=== PATIENT | male | born 1950 | race Hispanic/Latino ===

== ENCOUNTER 2020-04-01 12:15 | Inpatient (IN) | payer OTHER ==
[~2020-04-01] VITALS: Ht 167.6 cm; Wt 91.6 kg
[2020-04-01 13:17] LABS: INR 0.99 (0.85-1.15); PROTHROMBIN TIME 10.7 SEC (9.6-11.6)
[2020-04-01] MEDS ORDERED: METHYLPREDNISOLONE SOD SUCC 40MG/ML 1ML ONE (13:17)
[2020-04-01] MEDS ORDERED: ENOXAPARIN SODIUM 80 MG/0.8 ML SQ ONE (13:17)
[2020-04-01] MEDS ORDERED: SODIUM CHLORIDE 0.9% 1000ML 1,000 ML IV ONE (13:17)
[2020-04-01 13:18] LABS: CREATININE 1.6 mg/dL (0.5-1.5); POTASSIUM 4.3 mmol/L (3.5-5.1)
[2020-04-01 13:19] LABS: APPEARANCE,URINE Clear (CLEAR); BILIRUBIN,URINE Negative (NEGATIVE); COLOR,URINE Dark Yellow (YELLOW); GLUCOSE, URINE (UA) TRACE mg/dL (NEGATIVE); KETONES,URINE Trace mg/dL (NEGATIVE); LEUKOCYTE ESTERASE ,URINE Negative (NEGATIVE); NITRATE,URINE Negative (NEGATIVE); OCCULT BLOOD,URINE Negative (NEGATIVE); PROTEIN,URINE POS 1+ mg/dL (NEGATIVE)
[2020-04-01 13:28] LABS: ALBUMIN 3.2 g/dL (3.5-5.0); BILIRUBIN,TOTAL 0.6 mg/dL (0.2-1.0); TOTAL PROTEIN, SERUM 8.3 g/dL (6.0-8.3)
[2020-04-01 13:28] LABS: BASOPHILS % (AUTO) 0.2 % (0.0-5.0); EOSINOPHILS % (AUTO) 0.4 % (0.0-8.0); HEMATOCRIT 41.6 % (42-54); LYMPHOCYTES % (AUTO) 4.6 % (21.0-51.0); MEAN CORPUSCULAR HEMOGLOBIN 30.2 pg (27.0-33.0); MEAN CORPUSCULAR HGB CONC 33.7 g/dL (32.0-36.0); MEAN CORPUSCULAR VOLUME 89.8 fL (79-99); MONOCYTES % (AUTO) 2.2 % (3.0-13.0); NEUTROPHILS % (AUTO) 91.6 % (40.0-77.0); PLATELET COUNT (AUTO) 338 K/uL (130-400); RED BLOOD CELL COUNT(AUTO) 4.63 MIL/uL (4.50-6.20); WHITE BLOOD COUNT (AUTO) 10.5 K/uL (4.8-10.8)
[2020-04-01 13:31] LABS: BACTERIA,URINE Rare /HPF (None Seen); MUCUS,URINE Few LPF (None Seen); RBC,URINE 0-1 /HPF (0-1); SQUAMOUS EPITHELIAL CELL,UR Rare /HPF (0-2)
[2020-04-01] MEDS ORDERED: POTASSIUM CHLORIDE 10% ELIXIR 20 MEQ/15 ML UDCUP PO PRN (16:15)
[2020-04-01] MEDS ORDERED: ONDANSETRON HCL 4 MG/2 ML VIAL IV PRN (16:15)
[2020-04-01] MEDS ORDERED: [UNRECOGNIZED DRUG - REMARK] MISC SCH (16:15)
[2020-04-01] MEDS ORDERED: MAG HYDROX/AL HYDROX/SIMETH ES 30 ML SUSP UDCUP PO PRN (16:15)
[2020-04-01] MEDS ORDERED: HYDRALAZINE HCL 20 MG/ML VIAL IV PRN (16:15)
[2020-04-01] MEDS ORDERED: DOXYCYCLINE 100MG+NS 250ML IV SCH (16:15)
[2020-04-01] MEDS ORDERED: LACTULOSE 20 GM/30 ML UDCUP PO PRN (16:15)
[2020-04-01] MEDS ORDERED: ERGOCALCIFEROL (VITAMIN D2) 50,000 UNIT CAPSULE PO ONE (16:15)
[2020-04-01] MEDS ORDERED: POTASSIUM CHLORIDE 20MEQ/100ML 100 ML IV PRN (16:15)
[2020-04-01] MEDS: CEFTRIAXONE SODIUM 1 GM IVP SCH (16:15)
[2020-04-01] MEDS ORDERED: LIDOCAINE HCL-MPF 1% 2ML VIAL IV PRN (16:15)
[2020-04-01] MEDS ORDERED: POTASSIUM CHLORIDE 20 MEQ ERTAB PO PRN (16:15)
[2020-04-01] MEDS: INSULIN HUMULIN R 100 UNIT/ML 3ML SQ SCH ×2 (16:30→21:00)
[2020-04-01] MEDS ORDERED: CEFTRIAXONE SODIUM 1 GM ONE (17:13)
[2020-04-01 20:15] VITALS: BP 122/70
[2020-04-01] MEDS: DOXYCYCLINE 100MG+NS 250ML 250 ML IV SCH (21:00)
[2020-04-01] MEDS ORDERED: DOXYCYCLINE HYCLATE 100 MG TABLET PO ONE (21:05)
[2020-04-01] MEDS: METHYLPREDNISOLONE SOD SUCC 40MG/ML 1ML IVP SCH (21:12)
[2020-04-01 23:15] VITALS: BP 130/71
[2020-04-02] MEDS: CEFTRIAXONE SODIUM 1 GM IVP SCH ×2 (03:31→16:44)
[2020-04-02 04:28] LABS: BASOPHILS % (AUTO) 0.2 % (0.0-5.0); HEMATOCRIT 40.7 % (42-54); LYMPHOCYTES % (AUTO) 5.2 % (21.0-51.0); MEAN CORPUSCULAR HEMOGLOBIN 29.7 pg (27.0-33.0); MEAN CORPUSCULAR HGB CONC 33.2 g/dL (32.0-36.0); MEAN CORPUSCULAR VOLUME 89.6 fL (79-99); MONOCYTES % (AUTO) 1.7 % (3.0-13.0); NEUTROPHILS % (AUTO) 92.1 % (40.0-77.0); PLATELET COUNT (AUTO) 339 K/uL (130-400); RED BLOOD CELL COUNT(AUTO) 4.54 MIL/uL (4.50-6.20); RED CELL DISTRIBUTION WIDTH 12.9 % (11.0-15.5); WHITE BLOOD COUNT (AUTO) 10.3 K/uL (4.8-10.8)
[2020-04-02 05:14] LABS: ALBUMIN 2.9 g/dL (3.5-5.0); BILIRUBIN,TOTAL 0.5 mg/dL (0.2-1.0); CREATININE 1.3 mg/dL (0.5-1.5); POTASSIUM 4.4 mmol/L (3.5-5.1); TOTAL PROTEIN, SERUM 7.7 g/dL (6.0-8.3)
[2020-04-02 05:32] LABS: CRP QUANTITATIVE 200.1 mg/L (0.00-9.0)
[2020-04-02] MEDS: INSULIN HUMULIN R 100 UNIT/ML 3ML SQ SCH ×4 (05:50→20:43)
[2020-04-02 08:30] VITALS: BP 132/80
[2020-04-02] MEDS: ASCORBIC ACID 500 MG TAB PO SCH (08:32)
[2020-04-02] MEDS: METHYLPREDNISOLONE SOD SUCC 40MG/ML 1ML IVP SCH ×3 (08:32→19:59)
[2020-04-02] MEDS: ZINC SULFATE 220 CAPSULE PO SCH (08:33)
[2020-04-02] MEDS ORDERED: ENOXAPARIN SODIUM 40 MG/0.4 ML SYRINGE SQ SCH (09:00)
[2020-04-02] MEDS: DOXYCYCLINE 100MG+NS 250ML 250 ML IV SCH ×2 (09:48→19:59)
--- NOTE | 2020-04-02 09:53 | NUR ---
CHART CHECK COMPLETED. Pt IS A 70 Y.O. MALE ADMITTED SECONDARY TO ACUTE HYPOXIC RESPIRATORY FAILURE, SARS COV-2 PNEUMONIA. Pt HAS A PAST MEDICAL HISTORY SIGNIFICANT FOR DM,HTN,HYPERCHOLESTEROLEMIA. Pt CURRENTLY ON REGULAR TEXTURE,THIN LIQUID DIET (CONSISTENT CARB). PLEASE REQUEST FORMAL SKILLED SPEECH/SWALLOW EVALUATION IF Pt PRESENTS WITH +S/S OF ASPIRATION SUCH COUGH RESPONSE, THROAT CLEAR, OR WET VOCAL QUALITY DURING P.O. Addendum: 04/02/20 at 0957 by JAYLA LU, [facility] Amended: Links added.
--- NOTE | 2020-04-02 11:33 | NUR ---
DCP CM unable to currently meet w/pt, +covid hx, called daughter on facesheet, spoke to Carol Mathias , discussed dc plans. As per daughter pt is independent prior to admission, lives at home w/spouse, [place] is from [place], [place]. Denies any equipments/services. Feels safe to go back home, still drives, daughter currently came down from [place] to assist pt to get to the hospital. Plan is for patient to go back to [place] to see own PCP one pt is stable. hx + covid 2 days ago prior to admission, currently on high flow alternating w/nonrebreather FIO2 90 w/15L, O2 sat 97%. DC plan to home once stable. CM to cont to follow up. Addendum: 04/02/20 at 1136 by JEANINE HARGROVE LVN CM Amended: Links added.
[2020-04-02 12:01] VITALS: BP 157/80
[2020-04-02] MEDS ORDERED: [UNRECOGNIZED DRUG - REMARK] MISC SCH (15:15)
[2020-04-02 16:30] VITALS: BP 135/76
[2020-04-02] MEDS ORDERED: DOXYCYCLINE HYCLATE 100 MG TABLET PO ONE (19:37)
[2020-04-02] MEDS: ENOXAPARIN SODIUM 40 MG/0.4 ML SYRINGE SQ SCH (20:00)
[2020-04-02 21:00] VITALS: BP 143/80
[2020-04-02 23:46] VITALS: BP 129/75
--- NOTE | 2020-04-03 02:56 | NUR ---
assessment patient is alert and oriented times 4. no complaints of any pain. patient is sating 93% on 15 liters nonrebreather and 15 liters high flow. patient has to lay prone to get in the mid to upper 90's when supine he sats upper 80's to low 90's. skin is intact. otherwise vitals are stable will continue to monitor.
[2020-04-03] MEDS: CEFTRIAXONE SODIUM 1 GM IVP SCH ×2 (03:26→16:44)
[2020-04-03 03:47] VITALS: BP 136/66
[2020-04-03 05:39] LABS: BASOPHILS % (AUTO) 0.2 % (0.0-5.0); HEMATOCRIT 41.8 % (42-54); LYMPHOCYTES % (AUTO) 4.5 % (21.0-51.0); MEAN CORPUSCULAR HEMOGLOBIN 29.9 pg (27.0-33.0); MEAN CORPUSCULAR HGB CONC 33.7 g/dL (32.0-36.0); MEAN CORPUSCULAR VOLUME 88.7 fL (79-99); MONOCYTES % (AUTO) 1.8 % (3.0-13.0); NEUTROPHILS % (AUTO) 92.8 % (40.0-77.0); PLATELET COUNT (AUTO) 365 K/uL (130-400); RED BLOOD CELL COUNT(AUTO) 4.71 MIL/uL (4.50-6.20); RED CELL DISTRIBUTION WIDTH 12.7 % (11.0-15.5); WHITE BLOOD COUNT (AUTO) 10.4 K/uL (4.8-10.8)
[2020-04-03] MEDS: INSULIN HUMULIN R 100 UNIT/ML 3ML SQ SCH ×4 (05:54→20:49)
[2020-04-03 06:26] LABS: ALBUMIN 2.7 g/dL (3.5-5.0); BILIRUBIN,TOTAL 0.5 mg/dL (0.2-1.0); CREATININE 1.4 mg/dL (0.5-1.5); CRP QUANTITATIVE 172.2 mg/L (0.00-9.0); POTASSIUM 4.3 mmol/L (3.5-5.1); TOTAL PROTEIN, SERUM 7.4 g/dL (6.0-8.3)
[2020-04-03 08:32] VITALS: BP 146/82
[2020-04-03] MEDS: DOXYCYCLINE 100MG+NS 250ML 250 ML IV SCH ×2 (08:51→20:49)
[2020-04-03] MEDS: ZINC SULFATE 220 CAPSULE PO SCH (08:51)
[2020-04-03] MEDS: ASCORBIC ACID 500 MG TAB PO SCH (08:51)
[2020-04-03] MEDS: METHYLPREDNISOLONE SOD SUCC 40MG/ML 1ML IVP SCH ×3 (08:52→20:48)
[2020-04-03] MEDS: ENOXAPARIN SODIUM 40 MG/0.4 ML SYRINGE SQ SCH (08:52)
[2020-04-03 12:02] VITALS: BP 145/80
[2020-04-03 16:46] VITALS: BP 139/78
[2020-04-03 19:00] VITALS: BP 147/81
[2020-04-03] MEDS: ENOXAPARIN SODIUM 80 MG/0.8 ML SQ SCH (22:04)
--- NOTE | 2020-04-03 22:29 | NUR ---
NOTE PT REQUESTING TO USE BATHROOM. INFORMED PT THAT HIS O2 WAS NOT STABLE FOR HIM TO TAKE OFF HIS O2 AND GO TO THE RESTROOM. ENCOURAGED THE USE OF THE BED WALLER. PT AGREED. X1 SOFT BM NOTED. CLEAN PT AND CHANGED BED LINENS. O2 DURING THAT TIME WAS 73-76%. EDUCATED PT ON IMPORTANCE OF PLACING THE PT IN A PRONE POSITION. PLACED IN PRONE POSITION AND MONITORED O2 SATS INCREASING TO 92-94%. LEFT CALL LIGHT BY PT'S HEAD AND ENCOURAGED TO CALL FOR ASSISTANCE WHEN NEEDED- PT VERBALIZED AGREEMENT.
[2020-04-04] VITALS (7 sets, daily range): BP systolic 129–170; BP diastolic 66–95
[2020-04-04] MEDS ORDERED: SODIUM CHLORIDE 0.9% 250 ML IV ONE ×2 (02:47→18:19)
[2020-04-04] MEDS: CEFTRIAXONE SODIUM 1 GM IVP SCH ×2 (04:20→17:02)
--- NOTE | 2020-04-04 04:43 | NUR ---
PLASMA ADMINISTRATION COMPLETED ORDERED. PT RECEIVED X2 UNITS, SUSANNE WELL. NO ADVERSE REACTIONS NOTED.
[2020-04-04 04:49] LABS: BASOPHILS % (AUTO) 0.2 % (0.0-5.0); HEMATOCRIT 37.9 % (42-54); LYMPHOCYTES % (AUTO) 3.6 % (21.0-51.0); MEAN CORPUSCULAR HGB CONC 33.5 g/dL (32.0-36.0); MEAN CORPUSCULAR VOLUME 89.6 fL (79-99); NEUTROPHILS % (AUTO) 93.3 % (40.0-77.0); PLATELET COUNT (AUTO) 244 K/uL (130-400); RED BLOOD CELL COUNT(AUTO) 4.23 MIL/uL (4.50-6.20); RED CELL DISTRIBUTION WIDTH 12.7 % (11.0-15.5); WHITE BLOOD COUNT (AUTO) 11.7 K/uL (4.8-10.8)
[2020-04-04 05:19] LABS: ALBUMIN 2.7 g/dL (3.5-5.0); BILIRUBIN,TOTAL 0.6 mg/dL (0.2-1.0); CREATININE 1.2 mg/dL (0.5-1.5); POTASSIUM 4.2 mmol/L (3.5-5.1); TOTAL PROTEIN, SERUM 7.3 g/dL (6.0-8.3)
[2020-04-04] MEDS: INSULIN HUMULIN R 100 UNIT/ML 3ML SQ SCH ×4 (06:37→22:00)
--- NOTE | 2020-04-04 07:01 | NUR ---
NOTE PT ENCOURAGED TO PRONE THROUGHOUT THE NIGHT FREQUENTLY, PT WOULD PRONE MOMENTARILY THEN RETURN TO SIDE OR SUPINE POSITION. WHILE PRONED, SpO2 WOULD INCREASE TO 92-94%. WHEN PT WOULD RETURN TO THE SUPINE POSITION O2 SATS WOULD DECREASE TO 70-80S. PT REQUIRING FREQUENT TEACHING AND ENCOURAGING TO PRONE.
[2020-04-04] MEDS: ENOXAPARIN SODIUM 80 MG/0.8 ML SQ SCH ×2 (08:29→22:00)
[2020-04-04] MEDS: ZINC SULFATE 220 CAPSULE PO SCH (08:29)
[2020-04-04] MEDS: METHYLPREDNISOLONE SOD SUCC 40MG/ML 1ML IVP SCH ×3 (08:29→22:00)
[2020-04-04] MEDS: ASCORBIC ACID 500 MG TAB PO SCH (08:29)
[2020-04-04] MEDS: DOXYCYCLINE 100MG+NS 250ML 250 ML IV SCH ×2 (08:35→22:00)
[2020-04-04] MEDS ORDERED: PHARMACY COMMUNICATION MISC SCH (14:30)
[2020-04-04] MEDS ORDERED: REMDESIVIR (EUA) 520 200 MG in SODIUM CHLORIDE 0.9% 250 ML IV SCH (17:00)
[2020-04-04] MEDS ORDERED: COMPOUND IV REFRIGERATED 1 EACH IVSOLN MISC PRN (17:00)
[2020-04-05 04:45] VITALS: BP 136/55
[2020-04-05] MEDS: CEFTRIAXONE SODIUM 1 GM IVP SCH ×2 (04:52→17:27)
[2020-04-05 05:52] LABS: BASOPHILS % (AUTO) 0.2 % (0.0-5.0); HEMATOCRIT 44.3 % (42-54); LYMPHOCYTES % (AUTO) 2.3 % (21.0-51.0); MEAN CORPUSCULAR HEMOGLOBIN 30.3 pg (27.0-33.0); MEAN CORPUSCULAR HGB CONC 34.1 g/dL (32.0-36.0); MEAN CORPUSCULAR VOLUME 88.8 fL (79-99); MONOCYTES % (AUTO) 1.9 % (3.0-13.0); NEUTROPHILS % (AUTO) 94.1 % (40.0-77.0); PLATELET COUNT (AUTO) 263 K/uL (130-400); RED BLOOD CELL COUNT(AUTO) 4.99 MIL/uL (4.50-6.20); WHITE BLOOD COUNT (AUTO) 14.5 K/uL (4.8-10.8)
[2020-04-05] MEDS: PHARMACY COMMUNICATION MISC SCH (06:03)
[2020-04-05 06:38] LABS: ALBUMIN 2.8 g/dL (3.5-5.0); BILIRUBIN,DIRECT 0.3 mg/dL (0.0-0.3); BILIRUBIN,TOTAL 0.9 mg/dL (0.2-1.0); CREATININE 1.1 mg/dL (0.5-1.5); POTASSIUM 3.8 mmol/L (3.5-5.1)
[2020-04-05] MEDS: INSULIN HUMULIN R 100 UNIT/ML 3ML SQ SCH ×4 (06:50→21:00)
[2020-04-05 07:00] VITALS: BP 179/96
[2020-04-05 07:00] LABS: CRP QUANTITATIVE 294.3 mg/L (0.00-9.0)
[2020-04-05] MEDS: ZINC SULFATE 220 CAPSULE PO SCH (08:04)
[2020-04-05] MEDS: ASCORBIC ACID 500 MG TAB PO SCH (08:04)
[2020-04-05] MEDS: METHYLPREDNISOLONE SOD SUCC 40MG/ML 1ML IVP SCH ×3 (08:04→22:17)
[2020-04-05] MEDS: ENOXAPARIN SODIUM 80 MG/0.8 ML SQ SCH ×2 (08:05→22:17)
[2020-04-05] MEDS: DOXYCYCLINE 100MG+NS 250ML 250 ML IV SCH ×2 (10:20→22:17)
[2020-04-05 11:00] VITALS: BP 152/93
[2020-04-05] MEDS: METOPROLOL TARTRATE 1 MG/ML 5ML VIAL IV SCH ×3 (12:09→23:26)
[2020-04-05 15:00] VITALS: BP 169/95
[2020-04-05] MEDS: REMDESIVIR (EUA) 520 100 MG in SODIUM CHLORIDE 0.9% 250 ML IV SCH (17:28)
[2020-04-05 19:55] VITALS: BP 151/69
[2020-04-05 23:20] VITALS: BP 157/74
[2020-04-06] VITALS (7 sets, daily range): BP systolic 117–170; BP diastolic 57–107
--- NOTE | 2020-04-06 03:45 | NUR ---
SHIFT UPDATE PATIENT CONT. ON BIPAP, ENCOURAGED TO PRONE. PATIENT PRONES MOST OF SHIFT, BUT CHANGES POSITIONS FREQUENTLY WHICH CAUSES HIM TO DESAT AND BECOME HYPOXIC. PATIENT WITH INCREASED ANXIETY AND ATTEMPTS TO REMOVE BIPAP MASK. PATIENT EDUCATED ON IMPORTANCE OF KEEPING MASK ON AND PRONING. PT EXPRESSES UNDERSTANDING. PATIENT ROUNDED ON Q 30 MINUTES, CALL DEVICE WITHIN REACH.
[2020-04-06] MEDS ORDERED: LORAZEPAM 2 MG/ML 1 ML VIAL ONE (04:20)
--- NOTE | 2020-04-06 04:30 | NUR ---
PATIENT WITH EPISODE OF INCREASED ANXIETY AND AGITATION. MULTIPLE ATTEMPTS TO REMOVE MASK. HOUSE PROVIDER ROSS Mays NP ON FLOOR AT [phone]. DORMITORY KEEPER GAVE FOLLOWING ORDER 1)ATIVAN 1MG IVP Q 4 HOURS PRN FOR ANXIETY. PATIENT MEDICATED PER ORDER, CALL DEVICE WITHIN REACH, WILL CONT. TO MONITOR.
[2020-04-06] MEDS: METOPROLOL TARTRATE 1 MG/ML 5ML VIAL IV SCH ×4 (04:37→20:32)
[2020-04-06 05:07] LABS: BASOPHILS % (AUTO) 0.2 % (0.0-5.0); HEMATOCRIT 41.8 % (42-54); LYMPHOCYTES % (AUTO) 1.8 % (21.0-51.0); MEAN CORPUSCULAR HEMOGLOBIN 30.3 pg (27.0-33.0); MEAN CORPUSCULAR VOLUME 89.1 fL (79-99); MONOCYTES % (AUTO) 1.6 % (3.0-13.0); NEUTROPHILS % (AUTO) 95.6 % (40.0-77.0); PLATELET COUNT (AUTO) 205 K/uL (130-400); RED BLOOD CELL COUNT(AUTO) 4.69 MIL/uL (4.50-6.20); RED CELL DISTRIBUTION WIDTH 13.1 % (11.0-15.5); WHITE BLOOD COUNT (AUTO) 15.6 K/uL (4.8-10.8)
[2020-04-06] MEDS: CEFTRIAXONE SODIUM 1 GM IVP SCH ×2 (05:07→16:52)
--- NOTE | 2020-04-06 05:25 | NUR ---
REASSESS ANXIETY PATIENT IN BED RESTING QUIETLY, NO S/S OF PAIN OR DISTRESS. BIPAP IN PLACE. RR 26-30 SPO2 97%. PATIENT CURRENTLY IN PRONE POSITION. CALL DEVICE WITHIN REACH WILL CONT. TO MONITOR.
[2020-04-06 05:37] LABS: ALBUMIN 2.4 g/dL (3.5-5.0); BILIRUBIN,DIRECT 0.2 mg/dL (0.0-0.3); BILIRUBIN,TOTAL 0.7 mg/dL (0.2-1.0); POTASSIUM 4.2 mmol/L (3.5-5.1); TOTAL PROTEIN, SERUM 7.3 g/dL (6.0-8.3)
[2020-04-06 06:01] LABS: CRP QUANTITATIVE 285.3 mg/L (0.00-9.0)
[2020-04-06] MEDS: PHARMACY COMMUNICATION MISC SCH (06:12)
[2020-04-06] MEDS: INSULIN HUMULIN R 100 UNIT/ML 3ML SQ SCH ×4 (07:30→20:36)
[2020-04-06] MEDS: ZINC SULFATE 220 CAPSULE PO SCH (09:00)
[2020-04-06] MEDS: ASCORBIC ACID 500 MG TAB PO SCH (09:00)
[2020-04-06] MEDS: DOXYCYCLINE 100MG+NS 250ML 250 ML IV SCH ×2 (09:53→20:33)
[2020-04-06] MEDS: METHYLPREDNISOLONE SOD SUCC 40MG/ML 1ML IVP SCH ×3 (09:53→20:33)
[2020-04-06] MEDS: ENOXAPARIN SODIUM 80 MG/0.8 ML SQ SCH ×2 (09:54→20:36)
[2020-04-06] MEDS: LORAZEPAM 2 MG/ML 1 ML VIAL IVP PRN (12:27)
[2020-04-06] MEDS: REMDESIVIR (EUA) 520 100 MG in SODIUM CHLORIDE 0.9% 250 ML IV SCH (16:00)
--- NOTE | 2020-04-06 22:22 | NUR ---
Patient Transfer Patient is being transferred via bed to Room 202, report given to Milana CLANCY, pt is alert and oriented, no distress noted at this time. Assisted by staff x4 including RT.
[2020-04-07] VITALS (36 sets, daily range): BP systolic 81–198; BP diastolic 50–106
[2020-04-07] MEDS: METOPROLOL TARTRATE 1 MG/ML 5ML VIAL IV SCH ×6 (00:52→20:00)
[2020-04-07] MEDS: LORAZEPAM 2 MG/ML 1 ML VIAL IVP PRN ×2 (00:53→05:20)
[2020-04-07] MEDS ORDERED: HALOPERIDOL DECANOATE 100 MG/ML ML IM SCH ×2 (05:15→05:45)
[2020-04-07] MEDS: PHARMACY COMMUNICATION MISC SCH (06:00)
[2020-04-07] MEDS: CEFTRIAXONE SODIUM 1 GM IVP SCH ×2 (06:01→16:51)
[2020-04-07 06:11] LABS: BASOPHILS % (AUTO) 0.2 % (0.0-5.0); HEMATOCRIT 42.4 % (42-54); LYMPHOCYTES % (AUTO) 1.3 % (21.0-51.0); MEAN CORPUSCULAR HEMOGLOBIN 29.9 pg (27.0-33.0); MEAN CORPUSCULAR HGB CONC 33.5 g/dL (32.0-36.0); MEAN CORPUSCULAR VOLUME 89.3 fL (79-99); MONOCYTES % (AUTO) 1.7 % (3.0-13.0); NEUTROPHILS % (AUTO) 95.5 % (40.0-77.0); PLATELET COUNT (AUTO) 288 K/uL (130-400); RED BLOOD CELL COUNT(AUTO) 4.75 MIL/uL (4.50-6.20); RED CELL DISTRIBUTION WIDTH 13.3 % (11.0-15.5); WHITE BLOOD COUNT (AUTO) 25.4 K/uL (4.8-10.8)
[2020-04-07 06:36] LABS: ALBUMIN 2.3 g/dL (3.5-5.0); BILIRUBIN,DIRECT 0.2 mg/dL (0.0-0.3); BILIRUBIN,TOTAL 0.6 mg/dL (0.2-1.0); CREATININE 1.2 mg/dL (0.5-1.5); TOTAL PROTEIN, SERUM 7.1 g/dL (6.0-8.3)
[2020-04-07 06:46] LABS: CRP QUANTITATIVE 303.3 mg/L (0.00-9.0)
[2020-04-07 07:17] LABS: ABG BASE EXCESS -0.5 mmol/L (-2.0-3.0); ABG HCO3 25.9 mmol/L (21.0-28.0); ABG OXYGEN SATURATION 87.1 % (95.0-99.0); ABG PCO2 49 mmHg (35-48)
[2020-04-07] MEDS: INSULIN HUMULIN R 100 UNIT/ML 3ML SQ SCH ×4 (07:30→21:00)
[2020-04-07] MEDS: ASCORBIC ACID 500 MG TAB PO SCH (09:38)
[2020-04-07] MEDS: ENOXAPARIN SODIUM 80 MG/0.8 ML SQ SCH ×2 (09:38→23:18)
[2020-04-07] MEDS: METHYLPREDNISOLONE SOD SUCC 40MG/ML 1ML IVP SCH ×2 (09:39→14:53)
[2020-04-07] MEDS: ZINC SULFATE 220 CAPSULE PO SCH (09:39)
[2020-04-07] MEDS: DOXYCYCLINE 100MG+NS 250ML 250 ML IV SCH ×2 (09:40→23:21)
[2020-04-07] MEDS ORDERED: SODIUM CHLORIDE 0.9% 1000ML 1,000 ML IV ONE (12:24)
[2020-04-07] MEDS ORDERED: MIDAZOLAM 100MG-0.9% NS 100ML 100ML BAG IV STA (12:33)
[2020-04-07] MEDS ORDERED: FENTANYL 2500MCG+NS 250ML 250 ML IV ONE (12:37)
[2020-04-07] MEDS ORDERED: PROPOFOL 1000 MG/100 ML 100 ML IV ONE (13:38)
[2020-04-07 14:59] LABS: ABG BASE EXCESS -1.2 mmol/L (-2.0-3.0); ABG HCO3 29.2 mmol/L (21.0-28.0); ABG OXYGEN SATURATION 95.8 % (95.0-99.0); ABG PCO2 77 mmHg (35-48)
--- NOTE | 2020-04-07 17:11 | NUR ---
1215-patient transferred from [id number] icu, [facility]; intubated per HUMAN FACTORS ADVISOR LEAD with 7.5, 23 @ lip; padilla inserted, 18g right forearm per me inserted prior to procedure, cxr to confirm placement of intubation; og 16fr inserted low intermittent suction, will start tf as ordered. central line also place to right neck tlc. sedation started per protocol; dr mooney gave verbal orders, see listed. proned @ 1630 with rt @ bedside. ST, bp stable, o2 sat 97%. daughter & sister updated on patient, sister gave consent over telephone for access.
[2020-04-07] MEDS: REMDESIVIR (EUA) 520 100 MG in SODIUM CHLORIDE 0.9% 250 ML IV SCH (18:35)
[2020-04-07] MEDS: PROPOFOL 1000 MG/100 ML IV PRN (23:16)
[2020-04-08] VITALS (78 sets, daily range): BP systolic 47–163; BP diastolic 28–111
[2020-04-08] MEDS: METOPROLOL TARTRATE 1 MG/ML 5ML VIAL IV SCH ×6 (04:00→20:00)
[2020-04-08] MEDS ORDERED: SODIUM CHLORIDE 0.9% 1000ML 1,000 ML IV ONE (04:04)
[2020-04-08 05:55] LABS: BASOPHILS % (AUTO) 0.1 % (0.0-5.0); HEMATOCRIT 36.7 % (42-54); LYMPHOCYTES % (AUTO) 2.8 % (21.0-51.0); MEAN CORPUSCULAR HEMOGLOBIN 29.5 pg (27.0-33.0); MEAN CORPUSCULAR HGB CONC 31.1 g/dL (32.0-36.0); MEAN CORPUSCULAR VOLUME 94.8 fL (79-99); MONOCYTES % (AUTO) 1.4 % (3.0-13.0); PLATELET COUNT (AUTO) 163 K/uL (130-400); RED BLOOD CELL COUNT(AUTO) 3.87 MIL/uL (4.50-6.20); RED CELL DISTRIBUTION WIDTH 14.4 % (11.0-15.5); WHITE BLOOD COUNT (AUTO) 11.6 K/uL (4.8-10.8)
[2020-04-08 06:21] LABS: ALBUMIN 1.6 g/dL (3.5-5.0); BILIRUBIN,DIRECT 0.1 mg/dL (0.0-0.3); BILIRUBIN,TOTAL 0.3 mg/dL (0.2-1.0); CREATININE 1.3 mg/dL (0.5-1.5); POTASSIUM 4.2 mmol/L (3.5-5.1); TOTAL PROTEIN, SERUM 5.3 g/dL (6.0-8.3)
[2020-04-08 06:50] LABS: CRP QUANTITATIVE 243.3 mg/L (0.00-9.0)
[2020-04-08] MEDS: CEFTRIAXONE SODIUM 1 GM IVP SCH (07:10)
[2020-04-08] MEDS: INSULIN HUMULIN R 100 UNIT/ML 3ML SQ SCH ×3 (07:21→18:20)
[2020-04-08] MEDS: PHARMACY COMMUNICATION MISC SCH (07:23)
[2020-04-08] MEDS: ZINC SULFATE 220 CAPSULE PO SCH (08:42)
[2020-04-08] MEDS: ASCORBIC ACID 500 MG TAB PO SCH (08:42)
[2020-04-08] MEDS: DEXAMETHASONE SOD PHOSPHATE 4 MG/ML 1ML VIAL IVP SCH (08:43)
[2020-04-08] MEDS: ENOXAPARIN SODIUM 80 MG/0.8 ML SQ SCH (09:12)
[2020-04-08] MEDS ORDERED: VASOPRESSIN 40 UNITS in SODIUM CHLORIDE 0.9% 40 ML IV SCH (09:30)
[2020-04-08] MEDS ORDERED: NOREPINEPHRINE 4MG/NS 250ML 4 MG/250 ML IV.SOLN IV SCH (09:30)
[2020-04-08] MEDS: DOXYCYCLINE 100MG+NS 250ML 250 ML IV SCH ×2 (10:04→21:26)
[2020-04-08] MEDS: D5W-1/2 NS/20MEQ KCL 1,000 ML IV SCH (10:06)
[2020-04-08 10:09] LABS: ABG BASE EXCESS 1.8 mmol/L (-2.0-3.0); ABG HCO3 28.2 mmol/L (21.0-28.0); ABG OXYGEN SATURATION 97.7 % (95.0-99.0); ABG PCO2 51 mmHg (35-48)
[2020-04-08] MEDS: LACTATED RINGERS 1000ML 1,000 ML IV SCH ×3 (10:09→22:50)
[2020-04-08] MEDS: NOREPINEPHRINE 4MG/NS 250ML 250 ML IV SCH (10:13)
--- NOTE | 2020-04-08 12:22 | NUR ---
RDSCREEN - LOS X 7 Pt intubated, sedated. Recommend continuous tube feedings Glucerna 1.5, initiate at 10mls/hr. Goal 50mls/hr. Pt with Propofol @3.6mls/hr as per RN. Recommend Flush at 250ml Q4hrs Recs faxed to 2B ([phone]). RN unavailable at time of call. NUTRITION NOTE Pt admitted with ARF, COVID-19. Intubated 04/07/20. Hx DM, HTN, HLD. Monitored labs: Na 160, BUN 79, Cr 1.4, GFR 58, K 4.2, BG 197, Alb 1.6. RD to continue to monitor. Please notify as additional nutrition concerns arise. Thank you. Addendum: 04/08/20 at [address] Amended: Links added.
[2020-04-08 13:25] LABS: CREATININE 1.4 mg/dL (0.5-1.5); POTASSIUM 4.4 mmol/L (3.5-5.1)
[2020-04-08] MEDS: REMDESIVIR (EUA) 520 100 MG in SODIUM CHLORIDE 0.9% 250 ML IV SCH (18:22)
[2020-04-08] MEDS: PROPOFOL 1000 MG/100 ML IV PRN (21:24)
[2020-04-08] MEDS: FENTANYL 2500MCG+NS 250ML 250 ML IV SCH (21:25)
[2020-04-08] MEDS: DEXMEDETOMIDINE HCL 400 MCG in SODIUM CHLORIDE 0.9% 100 ML IV SCH (22:06)
[2020-04-09] VITALS (86 sets, daily range): BP systolic 81–132; BP diastolic 44–72
[2020-04-09] MEDS: INSULIN HUMULIN R 100 UNIT/ML 3ML SQ SCH ×4 (00:05→18:09)
[2020-04-09] MEDS: NOREPINEPHRINE 4MG/NS 250ML 250 ML IV SCH ×3 (00:22→15:43)
[2020-04-09] MEDS: D5W-1/2 NS/20MEQ KCL 1,000 ML IV SCH (00:23)
[2020-04-09] MEDS: METOPROLOL TARTRATE 1 MG/ML 5ML VIAL IV SCH ×6 (04:00→20:00)
[2020-04-09] MEDS: LACTATED RINGERS 1000ML 1,000 ML IV SCH ×2 (05:30→21:55)
[2020-04-09] MEDS: PROPOFOL 1000 MG/100 ML IV PRN ×2 (05:41→15:40)
[2020-04-09 05:54] LABS: BASOPHILS % (AUTO) 0.1 % (0.0-5.0); EOSINOPHILS % (AUTO) 0.1 % (0.0-8.0); HEMATOCRIT 38.8 % (42-54); LYMPHOCYTES % (AUTO) 1.6 % (21.0-51.0); MEAN CORPUSCULAR HEMOGLOBIN 29.9 pg (27.0-33.0); MEAN CORPUSCULAR HGB CONC 31.4 g/dL (32.0-36.0); MEAN CORPUSCULAR VOLUME 95.1 fL (79-99); MONOCYTES % (AUTO) 1.9 % (3.0-13.0); NEUTROPHILS % (AUTO) 95.5 % (40.0-77.0); PLATELET COUNT (AUTO) 207 K/uL (130-400); RED BLOOD CELL COUNT(AUTO) 4.08 MIL/uL (4.50-6.20); RED CELL DISTRIBUTION WIDTH 14.6 % (11.0-15.5); WHITE BLOOD COUNT (AUTO) 19.8 K/uL (4.8-10.8)
[2020-04-09] MEDS: PHARMACY COMMUNICATION MISC SCH (06:00)
[2020-04-09 06:44] LABS: ALBUMIN 1.6 g/dL (3.5-5.0); BILIRUBIN,TOTAL 0.2 mg/dL (0.2-1.0); CREATININE 1.6 mg/dL (0.5-1.5); CRP QUANTITATIVE 161.6 mg/L (0.00-9.0); POTASSIUM 4.9 mmol/L (3.5-5.1); TOTAL PROTEIN, SERUM 5.4 g/dL (6.0-8.3)
[2020-04-09] MEDS: ASCORBIC ACID 500 MG TAB PO SCH (08:08)
[2020-04-09] MEDS: ZINC SULFATE 220 CAPSULE PO SCH (08:08)
[2020-04-09] MEDS: DEXAMETHASONE SOD PHOSPHATE 4 MG/ML 1ML VIAL IVP SCH (08:08)
[2020-04-09] MEDS: FENTANYL 2500MCG+NS 250ML 250 ML IV SCH (08:08)
[2020-04-09] MEDS: DOXYCYCLINE 100MG+NS 250ML 250 ML IV SCH ×2 (08:09→20:29)
[2020-04-09] MEDS: ENOXAPARIN SODIUM 80 MG/0.8 ML SQ SCH (08:09)
[2020-04-09 08:13] LABS: ABG BASE EXCESS -2.2 mmol/L (-2.0-3.0); ABG HCO3 23.6 mmol/L (21.0-28.0); ABG OXYGEN SATURATION 98.4 % (95.0-99.0); ABG PCO2 44 mmHg (35-48)
[2020-04-09] MEDS: DEXMEDETOMIDINE HCL 400 MCG in SODIUM CHLORIDE 0.9% 100 ML IV SCH (09:44)
--- NOTE | 2020-04-09 15:11 | NUR ---
RD UPDATE Tube Feeding initiated 04/08/20. Current rate at 20mls/hr, free water flushes at 250mls. Serum sodium remains elevated, Cr 1.6, GFR 46, BG 287, Alb 1.6. Recommend to continue trickle feedings at 20mls/hr for an additional 24hours. RD to continue to monitor. Please notify as additional nutrition concerns arise. Thank you.
[2020-04-09 21:07] LABS: BASOPHILS % (AUTO) 0.1 % (0.0-5.0); EOSINOPHILS % (AUTO) 0.1 % (0.0-8.0); HEMATOCRIT 37.4 % (42-54); LYMPHOCYTES % (AUTO) 2.1 % (21.0-51.0); MEAN CORPUSCULAR HEMOGLOBIN 29.8 pg (27.0-33.0); MEAN CORPUSCULAR HGB CONC 31.3 g/dL (32.0-36.0); MEAN CORPUSCULAR VOLUME 95.2 fL (79-99); MONOCYTES % (AUTO) 1.7 % (3.0-13.0); NEUTROPHILS % (AUTO) 95.2 % (40.0-77.0); PLATELET COUNT (AUTO) 126 K/uL (130-400); RED BLOOD CELL COUNT(AUTO) 3.93 MIL/uL (4.50-6.20); RED CELL DISTRIBUTION WIDTH 14.5 % (11.0-15.5); WHITE BLOOD COUNT (AUTO) 14.4 K/uL (4.8-10.8)
[2020-04-09 21:14] LABS: CREATININE 1.3 mg/dL (0.5-1.5)
[2020-04-09] MEDS: DEXTROSE 5%-WATER 1,000 ML IV SCH (21:45)
[2020-04-10] VITALS (86 sets, daily range): BP systolic 91–128; BP diastolic 47–71
[2020-04-10] MEDS: INSULIN HUMULIN R 100 UNIT/ML 3ML SQ SCH ×4 (00:16→17:09)
[2020-04-10] MEDS: D5W-1/2 NS/20MEQ KCL 1,000 ML IV SCH ×2 (01:30→12:25)
[2020-04-10] MEDS: METOPROLOL TARTRATE 1 MG/ML 5ML VIAL IV SCH ×6 (04:00→20:00)
[2020-04-10 05:12] LABS: BASOPHILS % (AUTO) 0.1 % (0.0-5.0); EOSINOPHILS % (AUTO) 0.6 % (0.0-8.0); HEMATOCRIT 39.1 % (42-54); LYMPHOCYTES % (AUTO) 3.3 % (21.0-51.0); MEAN CORPUSCULAR HEMOGLOBIN 30.1 pg (27.0-33.0); MEAN CORPUSCULAR HGB CONC 31.5 g/dL (32.0-36.0); MEAN CORPUSCULAR VOLUME 95.6 fL (79-99); MONOCYTES % (AUTO) 1.6 % (3.0-13.0); NEUTROPHILS % (AUTO) 93.6 % (40.0-77.0); PLATELET COUNT (AUTO) 142 K/uL (130-400); RED BLOOD CELL COUNT(AUTO) 4.09 MIL/uL (4.50-6.20); RED CELL DISTRIBUTION WIDTH 14.6 % (11.0-15.5)
[2020-04-10] MEDS: FENTANYL 2500MCG+NS 250ML 250 ML IV SCH (05:12)
[2020-04-10] MEDS: NOREPINEPHRINE 4MG/NS 250ML 250 ML IV SCH ×2 (05:13→07:19)
[2020-04-10] MEDS: DEXMEDETOMIDINE HCL 400 MCG in SODIUM CHLORIDE 0.9% 100 ML IV SCH ×2 (05:13→07:13)
[2020-04-10 05:32] LABS: ALBUMIN 1.5 g/dL (3.5-5.0); BILIRUBIN,TOTAL 0.3 mg/dL (0.2-1.0); CREATININE 1.1 mg/dL (0.5-1.5); CRP QUANTITATIVE 166.9 mg/L (0.00-9.0); TOTAL PROTEIN, SERUM 5.3 g/dL (6.0-8.3)
[2020-04-10] MEDS: PROPOFOL 1000 MG/100 ML IV PRN ×2 (07:13→18:14)
[2020-04-10] MEDS: LACTATED RINGERS 1000ML 1,000 ML IV SCH ×3 (07:19→20:37)
[2020-04-10] MEDS: ZINC SULFATE 220 CAPSULE PO SCH (08:00)
[2020-04-10] MEDS: ASCORBIC ACID 500 MG TAB PO SCH (08:00)
[2020-04-10] MEDS: DOXYCYCLINE 100MG+NS 250ML 250 ML IV SCH (08:01)
[2020-04-10] MEDS: ENOXAPARIN SODIUM 80 MG/0.8 ML SQ SCH (08:01)
[2020-04-10] MEDS: DEXAMETHASONE SOD PHOSPHATE 4 MG/ML 1ML VIAL IVP SCH (08:01)
[2020-04-10] MEDS: DEXTROSE 5%-WATER 1,000 ML IV SCH ×3 (11:05→21:23)
[2020-04-10] MEDS ORDERED: PHARMACY COMMUNICATION MISC SCH (11:45)
[2020-04-10 12:06] LABS: ABG BASE EXCESS -1.5 mmol/L (-2.0-3.0); ABG HCO3 23.5 mmol/L (21.0-28.0); ABG OXYGEN SATURATION 91.3 % (95.0-99.0); ABG PCO2 41 mmHg (35-48)
[2020-04-10] MEDS ORDERED: FENTANYL CITRATE PF 0.05 MG/ML 2,500 MCG in DEXTROSE 5%-WATER 250 ML IVPB SCH (12:45)
[2020-04-10] MEDS ORDERED: DEXTROSE 5% IV SCH (12:45)
[2020-04-10] MEDS ORDERED: WATER IV SCH (12:45)
[2020-04-10] MEDS ORDERED: VASOPRESSIN IV SCH (12:45)
[2020-04-10] MEDS ORDERED: COMPOUND NARC IV MISC 1 EACH IVSOLN MISC PRN (15:00)
[2020-04-10] MEDS: NOREPINEPHRINE BITARTRATE 4 MG in DEXTROSE 5%-WATER 250 ML IV SCH (15:53)
[2020-04-10] MEDS: DEXTROSE 5% IV SCH (16:35)
[2020-04-10] MEDS: DEXMEDETOMIDINE HCL IV SCH (16:35)
[2020-04-10] MEDS: WATER IV SCH (16:35)
[2020-04-10] MEDS: DOXYCYCLINE HYCLATE 100 MG in DEXTROSE 5%-WATER 250 ML IV SCH (20:36)
[2020-04-10] MEDS ORDERED: ACETAMINOPHEN ELIXIR 650 MG/20.3 ML UDCUP ONE (23:50)
[2020-04-11] VITALS (86 sets, daily range): BP systolic 63–131; BP diastolic 26–73
[2020-04-11] MEDS: INSULIN GLARGINE 100 UNITS/ML 10 ML VIAL SQ SCH ×2 (00:03→20:24)
[2020-04-11] MEDS: INSULIN HUMULIN R 100 UNIT/ML 3ML SQ SCH ×4 (00:04→17:10)
[2020-04-11] MEDS ORDERED: NOREPINEPHRINE 4MG/NS 250ML 250 ML IV ONE (02:50)
[2020-04-11] MEDS: METOPROLOL TARTRATE 1 MG/ML 5ML VIAL IV SCH ×6 (04:00→20:00)
[2020-04-11] MEDS: LACTATED RINGERS 1000ML 1,000 ML IV SCH ×3 (04:06→15:58)
[2020-04-11] MEDS: D5W-1/2 NS/20MEQ KCL 1,000 ML IV SCH ×2 (04:06→15:58)
[2020-04-11] MEDS: PROPOFOL 1000 MG/100 ML IV PRN ×3 (05:15→22:00)
[2020-04-11 05:19] LABS: BASOPHILS % (AUTO) 0.1 % (0.0-5.0); EOSINOPHILS % (AUTO) 0.8 % (0.0-8.0); HEMATOCRIT 38.2 % (42-54); LYMPHOCYTES % (AUTO) 3.4 % (21.0-51.0); MEAN CORPUSCULAR HEMOGLOBIN 29.6 pg (27.0-33.0); MEAN CORPUSCULAR HGB CONC 30.9 g/dL (32.0-36.0); MEAN CORPUSCULAR VOLUME 95.7 fL (79-99); MONOCYTES % (AUTO) 2.1 % (3.0-13.0); NEUTROPHILS % (AUTO) 92.6 % (40.0-77.0); NUCLEATED RED BLOOD CELLS 0.1 % (0.0-0.19); PLATELET COUNT (AUTO) 138 K/uL (130-400); RED BLOOD CELL COUNT(AUTO) 3.99 MIL/uL (4.50-6.20); RED CELL DISTRIBUTION WIDTH 14.6 % (11.0-15.5); WHITE BLOOD COUNT (AUTO) 17.2 K/uL (4.8-10.8)
[2020-04-11 06:08] LABS: ALBUMIN 1.4 g/dL (3.5-5.0); BILIRUBIN,TOTAL 0.3 mg/dL (0.2-1.0); CRP QUANTITATIVE 136.4 mg/L (0.00-9.0); POTASSIUM 4.9 mmol/L (3.5-5.1); TOTAL PROTEIN, SERUM 5.1 g/dL (6.0-8.3)
[2020-04-11 07:26] LABS: ABG BASE EXCESS -5.5 mmol/L (-2.0-3.0); ABG HCO3 21.4 mmol/L (21.0-28.0); ABG OXYGEN SATURATION 93.6 % (95.0-99.0); ABG PCO2 47 mmHg (35-48)
[2020-04-11] MEDS: DOXYCYCLINE HYCLATE 100 MG in DEXTROSE 5%-WATER 250 ML IV SCH (08:46)
[2020-04-11] MEDS: DEXAMETHASONE SOD PHOSPHATE 4 MG/ML 1ML VIAL IVP SCH (08:47)
[2020-04-11] MEDS: ZINC SULFATE 220 CAPSULE PO SCH (08:47)
[2020-04-11] MEDS: ENOXAPARIN SODIUM 80 MG/0.8 ML SQ SCH (08:47)
[2020-04-11] MEDS: ASCORBIC ACID 500 MG TAB PO SCH (08:48)
[2020-04-11] MEDS: MIDODRINE HCL 5 MG TABLET PO SCH ×3 (08:48→20:21)
[2020-04-11] MEDS: MEROPENEM 1 GM VIAL IVP SCH ×2 (13:37→20:20)
[2020-04-11] MEDS: DEXTROSE 5%-WATER 1,000 ML IV SCH (13:37)
[2020-04-11 19:14] LABS: CREATININE 1.2 mg/dL (0.5-1.5); POTASSIUM 5.3 mmol/L (3.5-5.1)
[2020-04-12] VITALS (94 sets, daily range): BP systolic 74–162; BP diastolic 33–84
[2020-04-12] MEDS: LACTATED RINGERS 1000ML 1,000 ML IV SCH ×3 (00:10→13:17)
[2020-04-12] MEDS: DEXTROSE 5%-WATER 1,000 ML IV SCH ×3 (00:33→21:30)
[2020-04-12] MEDS: INSULIN HUMULIN R 100 UNIT/ML 3ML SQ SCH ×4 (00:37→18:00)
[2020-04-12] MEDS: METOPROLOL TARTRATE 1 MG/ML 5ML VIAL IV SCH ×6 (04:00→20:00)
[2020-04-12] MEDS: MEROPENEM 1 GM VIAL IVP SCH ×3 (05:19→21:29)
[2020-04-12] MEDS: PROPOFOL 1000 MG/100 ML IV PRN ×2 (05:20→10:19)
[2020-04-12] MEDS: D5W-1/2 NS/20MEQ KCL 1,000 ML IV SCH (05:20)
[2020-04-12 06:15] LABS: EOSINOPHILS % (AUTO) 1.4 % (0.0-8.0); HEMATOCRIT 33.5 % (42-54); LYMPHOCYTES % (AUTO) 5.6 % (21.0-51.0); MEAN CORPUSCULAR HEMOGLOBIN 29.3 pg (27.0-33.0); MEAN CORPUSCULAR HGB CONC 30.4 g/dL (32.0-36.0); MEAN CORPUSCULAR VOLUME 96.3 fL (79-99); MONOCYTES % (AUTO) 2.9 % (3.0-13.0); NEUTROPHILS % (AUTO) 88.8 % (40.0-77.0); NUCLEATED RED BLOOD CELLS 0.2 % (0.0-0.19); PLATELET COUNT (AUTO) 103 K/uL (130-400); RED BLOOD CELL COUNT(AUTO) 3.48 MIL/uL (4.50-6.20); RED CELL DISTRIBUTION WIDTH 14.4 % (11.0-15.5); WHITE BLOOD COUNT (AUTO) 9.3 K/uL (4.8-10.8)
[2020-04-12 06:40] LABS: ALBUMIN 1.3 g/dL (3.5-5.0); BILIRUBIN,TOTAL 0.2 mg/dL (0.2-1.0); CREATININE 0.9 mg/dL (0.5-1.5); CRP QUANTITATIVE 54.4 mg/L (0.00-9.0); POTASSIUM 4.7 mmol/L (3.5-5.1); TOTAL PROTEIN, SERUM 4.5 g/dL (6.0-8.3)
[2020-04-12 08:12] LABS: ABG BASE EXCESS -2.2 mmol/L (-2.0-3.0); ABG HCO3 24.2 mmol/L (21.0-28.0); ABG OXYGEN SATURATION 98.5 % (95.0-99.0); ABG PCO2 47 mmHg (35-48)
[2020-04-12] MEDS: ZINC SULFATE 220 CAPSULE PO SCH (08:21)
[2020-04-12] MEDS: MIDODRINE HCL 5 MG TABLET PO SCH ×3 (08:21→21:29)
[2020-04-12] MEDS: DEXAMETHASONE SOD PHOSPHATE 4 MG/ML 1ML VIAL IVP SCH (08:21)
[2020-04-12] MEDS: ASCORBIC ACID 500 MG TAB PO SCH (08:21)
[2020-04-12] MEDS: ENOXAPARIN SODIUM 80 MG/0.8 ML SQ SCH (08:23)
[2020-04-12] MEDS ORDERED: MIDAZOLAM HCL 50 MG in SODIUM CHLORIDE 0.9% 50 ML IV SCH (11:45)
[2020-04-12] MEDS: MIDAZOLAM 100MG-0.9% NS 100ML 100 ML IV SCH (12:08)
[2020-04-12 14:46] LABS: HEMATOCRIT 34.6 % (42-54); MEAN CORPUSCULAR HEMOGLOBIN 30.1 pg (27.0-33.0); MEAN CORPUSCULAR HGB CONC 31.5 g/dL (32.0-36.0); MEAN CORPUSCULAR VOLUME 95.6 fL (79-99); PLATELET COUNT (AUTO) 92 K/uL (130-400); RED BLOOD CELL COUNT(AUTO) 3.62 MIL/uL (4.50-6.20); RED CELL DISTRIBUTION WIDTH 14.3 % (11.0-15.5); WHITE BLOOD COUNT (AUTO) 11.2 K/uL (4.8-10.8)
--- NOTE | 2020-04-12 15:12 | NUR ---
JULIAN FOLLOW UP Pt continues with Tube Feeding Glucerna 1.5, current rate 20mls/hr x 3 days. LBM 04/04/20. Flushes at 250 Q4hrs. Monitored labs: BG 230, BUN 46, Alb 1.3. Elevated BG on low rate carb-steady tube feeding. Propofol discontinued today. IV Dxt @100mls/hr, Humulin R, Zinc, Vit C, Dexamethasone, Lantus medications in place. Recommend stool softener/laxative as medically feasible Recommend continue to advance tube feeding to goal rate as medically feasible. RD to continue to monitor. Please notify as additional nutrition concerns arise. Thank you. Addendum: 04/12/20 at [address] Amended: Links added.
[2020-04-12 15:55] LABS: BAND NEUTROPHILS % (MANUAL) 10 % (0-2); EOSINOPHILS % (MANUAL) 2 % (1-6); LYMPHOCYTES % (MANUAL) 3 % (22-44); REACTIVE LYMPHOCYTES 1 % (0-0); SEGMENTED NEUTROPHILS % 84 % (40-70)
[2020-04-12 15:56] LABS: MAN.DIFF COMMENT-IMPRESSION MANUAL DIFFERENTIAL
[2020-04-12] MEDS: INSULIN GLARGINE 100 UNITS/ML 10 ML VIAL SQ SCH (21:00)
[2020-04-13] VITALS (68 sets, daily range): BP systolic 77–137; BP diastolic 40–88
--- NOTE | 2020-04-13 01:15 | NUR ---
PRONED PATIENT. COLA BROWN NASAL GASTRIC CONTENT CAME FROM PT MOUTH AND NOSE AFTER PRONING. HOOKED NG TUBE TO SUCTION GOT 200 RESIDUAL BUT NOT COLA COLORED. WILL LEAVE OFF TUBE FEED AND RECHECK.
[2020-04-13] MEDS: METOPROLOL TARTRATE 1 MG/ML 5ML VIAL IV SCH ×6 (04:00→20:00)
[2020-04-13 05:26] LABS: HEMATOCRIT 38.5 % (42-54); MEAN CORPUSCULAR HEMOGLOBIN 29.6 pg (27.0-33.0); MEAN CORPUSCULAR HGB CONC 31.9 g/dL (32.0-36.0); MEAN CORPUSCULAR VOLUME 92.8 fL (79-99); NUCLEATED RED BLOOD CELLS 0.1 % (0.0-0.19); PLATELET COUNT (AUTO) 140 K/uL (130-400); RED BLOOD CELL COUNT(AUTO) 4.15 MIL/uL (4.50-6.20); RED CELL DISTRIBUTION WIDTH 13.6 % (11.0-15.5); WHITE BLOOD COUNT (AUTO) 15.4 K/uL (4.8-10.8)
[2020-04-13 05:45] LABS: BAND NEUTROPHILS % (MANUAL) 3 % (0-2); EOSINOPHILS % (MANUAL) 1 % (1-6); LYMPHOCYTES % (MANUAL) 3 % (22-44); MAN.DIFF COMMENT-IMPRESSION MANUAL DIFFERENTIAL; MONOCYTES % (MANUAL) 6 % (2-9); PLATELET MORPHOLOGY COMMENT ADEQUATE; SEGMENTED NEUTROPHILS % 87 % (40-70)
[2020-04-13 05:54] LABS: ALBUMIN 1.5 g/dL (3.5-5.0); BILIRUBIN,TOTAL 0.4 mg/dL (0.2-1.0); CREATININE 0.8 mg/dL (0.5-1.5); CRP QUANTITATIVE 30.5 mg/L (0.00-9.0); POTASSIUM 4.5 mmol/L (3.5-5.1); TOTAL PROTEIN, SERUM 5.2 g/dL (6.0-8.3)
[2020-04-13] MEDS: INSULIN HUMULIN R 100 UNIT/ML 3ML SQ SCH ×4 (06:00→18:00)
[2020-04-13] MEDS: MEROPENEM 1 GM VIAL IVP SCH ×3 (06:21→22:27)
[2020-04-13] MEDS: DEXTROSE 5%-WATER 1,000 ML IV SCH ×2 (06:21→15:45)
[2020-04-13 09:26] LABS: ABG BASE EXCESS -0.7 mmol/L (-2.0-3.0); ABG HCO3 24.9 mmol/L (21.0-28.0); ABG OXYGEN SATURATION 94.9 % (95.0-99.0); ABG PCO2 44 mmHg (35-48)
[2020-04-13] MEDS: ZINC SULFATE 220 CAPSULE PO SCH (10:19)
[2020-04-13] MEDS: ASCORBIC ACID 500 MG TAB PO SCH (10:19)
[2020-04-13] MEDS: DEXAMETHASONE SOD PHOSPHATE 4 MG/ML 1ML VIAL IVP SCH (10:19)
[2020-04-13] MEDS: ENOXAPARIN SODIUM 40 MG/0.4 ML SYRINGE SQ SCH (10:19)
[2020-04-13] MEDS: MIDODRINE HCL 5 MG TABLET PO SCH ×3 (10:19→22:27)
[2020-04-13] MEDS ORDERED: NOREPINEPHRINE 4MG/NS 250ML 250 ML IV ONE (14:01)
[2020-04-13 14:19] LABS: ABG HCO3 23.1 mmol/L (21.0-28.0); ABG OXYGEN SATURATION 95.4 % (95.0-99.0); ABG PCO2 50 mmHg (35-48)
--- NOTE | 2020-04-13 21:55 | NUR ---
Burgandy residual from clamped OG.
[2020-04-13] MEDS: INSULIN GLARGINE 100 UNITS/ML 10 ML VIAL SQ SCH (22:28)
[2020-04-14] VITALS (74 sets, daily range): BP systolic 96–135; BP diastolic 55–77
[2020-04-14] MEDS: METOPROLOL TARTRATE 1 MG/ML 5ML VIAL IV SCH ×6 (00:32→20:00)
[2020-04-14] MEDS: DEXTROSE 5%-WATER 1,000 ML IV SCH ×2 (00:35→11:12)
[2020-04-14 05:22] LABS: HEMATOCRIT 36.2 % (42-54); MEAN CORPUSCULAR HEMOGLOBIN 29.6 pg (27.0-33.0); MEAN CORPUSCULAR HGB CONC 31.5 g/dL (32.0-36.0); NUCLEATED RED BLOOD CELLS 0.1 % (0.0-0.19); PLATELET COUNT (AUTO) 161 K/uL (130-400); RED BLOOD CELL COUNT(AUTO) 3.85 MIL/uL (4.50-6.20); RED CELL DISTRIBUTION WIDTH 13.4 % (11.0-15.5); WHITE BLOOD COUNT (AUTO) 21.2 K/uL (4.8-10.8)
[2020-04-14] MEDS: INSULIN HUMULIN R 100 UNIT/ML 3ML SQ SCH ×4 (06:00→18:00)
[2020-04-14 06:14] LABS: BAND NEUTROPHILS % (MANUAL) 7 % (0-2); LYMPHOCYTES % (MANUAL) 2 % (22-44); MONOCYTES % (MANUAL) 3 % (2-9); SEGMENTED NEUTROPHILS % 88 % (40-70)
[2020-04-14 06:15] LABS: CRP QUANTITATIVE 265.4 mg/L (0.00-9.0); MAN.DIFF COMMENT-IMPRESSION MANUAL DIFFERENTIAL; PLATELET MORPHOLOGY COMMENT ADEQUATE
[2020-04-14] MEDS: MEROPENEM 1 GM VIAL IVP SCH ×3 (06:41→20:09)
[2020-04-14 07:10] LABS: POTASSIUM 5.4 mmol/L (3.5-5.1)
[2020-04-14 07:39] LABS: ABG BASE EXCESS -1.3 mmol/L (-2.0-3.0); ABG HCO3 26.3 mmol/L (21.0-28.0); ABG OXYGEN SATURATION 95.4 % (95.0-99.0); ABG PCO2 56 mmHg (35-48)
[2020-04-14] MEDS: ENOXAPARIN SODIUM 40 MG/0.4 ML SYRINGE SQ SCH (09:00)
[2020-04-14] MEDS: DEXAMETHASONE SOD PHOSPHATE 4 MG/ML 1ML VIAL IVP SCH (09:00)
[2020-04-14] MEDS: ASCORBIC ACID 500 MG TAB PO SCH (09:00)
[2020-04-14] MEDS: MIDODRINE HCL 5 MG TABLET PO SCH ×3 (09:00→20:07)
[2020-04-14] MEDS: ZINC SULFATE 220 CAPSULE PO SCH (09:00)
[2020-04-14] MEDS ORDERED: PROPOFOL 1000 MG/100 ML IV PRN (11:45)
[2020-04-14] MEDS ORDERED: METOCLOPRAMIDE 10 MG/2 ML VIAL ONE (14:00)
[2020-04-14 16:29] LABS: CREATININE 0.9 mg/dL (0.5-1.5); MAGNESIUM 1.9 mg/dL (1.80-2.40)
[2020-04-14] MEDS ORDERED: SODIUM POLYSTYRENE SULFONATE 15 GM/60 ML ML ONE (16:45)
[2020-04-14] MEDS ORDERED: SODIUM POLYSTYRENE SULFONATE 15 GM/60 ML ML RC SCH (17:45)
[2020-04-14] MEDS: INSULIN GLARGINE 100 UNITS/ML 10 ML VIAL SQ SCH (20:43)
[2020-04-15] VITALS (55 sets, daily range): BP systolic 91–169; BP diastolic 42–82
[2020-04-15] MEDS: METOPROLOL TARTRATE 1 MG/ML 5ML VIAL IV SCH ×7 (04:00→23:14)
[2020-04-15 04:46] LABS: ABG BASE EXCESS -4.2 mmol/L (-2.0-3.0); ABG HCO3 21.9 mmol/L (21.0-28.0); ABG OXYGEN SATURATION 92.9 % (95.0-99.0); ABG PCO2 44 mmHg (35-48)
[2020-04-15 05:03] LABS: HEMATOCRIT 34.4 % (42-54); MEAN CORPUSCULAR HEMOGLOBIN 29.9 pg (27.0-33.0); MEAN CORPUSCULAR HGB CONC 31.7 g/dL (32.0-36.0); MEAN CORPUSCULAR VOLUME 94.2 fL (79-99); NUCLEATED RED BLOOD CELLS 0.1 % (0.0-0.19); PLATELET COUNT (AUTO) 120 K/uL (130-400); RED BLOOD CELL COUNT(AUTO) 3.65 MIL/uL (4.50-6.20); RED CELL DISTRIBUTION WIDTH 13.5 % (11.0-15.5); WHITE BLOOD COUNT (AUTO) 15.1 K/uL (4.8-10.8)
[2020-04-15 05:28] LABS: CREATININE 0.9 mg/dL (0.5-1.5); CRP QUANTITATIVE 109.5 mg/L (0.00-9.0); POTASSIUM 5.1 mmol/L (3.5-5.1)
[2020-04-15] MEDS: MEROPENEM 1 GM VIAL IVP SCH ×2 (05:28→13:17)
[2020-04-15] MEDS: INSULIN HUMULIN R 100 UNIT/ML 3ML SQ SCH ×3 (06:00→18:00)
[2020-04-15 06:24] LABS: BAND NEUTROPHILS % (MANUAL) 4 % (0-2); LYMPHOCYTES % (MANUAL) 1 % (22-44); MONOCYTES % (MANUAL) 2 % (2-9); SEGMENTED NEUTROPHILS % 93 % (40-70)
[2020-04-15 06:25] LABS: MAN.DIFF COMMENT-IMPRESSION MANUAL DIFFERENTIAL; PLATELET MORPHOLOGY COMMENT ADEQUATE
[2020-04-15] MEDS: DEXAMETHASONE SOD PHOSPHATE 4 MG/ML 1ML VIAL IVP SCH (08:10)
[2020-04-15] MEDS: PANTOPRAZOLE 40 MG/VIAL IVP SCH (08:10)
[2020-04-15] MEDS: METOCLOPRAMIDE 10 MG/2 ML VIAL IVP SCH (08:10)
[2020-04-15] MEDS: ASCORBIC ACID 500 MG TAB PO SCH (08:11)
[2020-04-15] MEDS: ZINC SULFATE 220 CAPSULE PO SCH (08:11)
[2020-04-15] MEDS: ENOXAPARIN SODIUM 40 MG/0.4 ML SYRINGE SQ SCH (08:11)
[2020-04-15] MEDS: MIDODRINE HCL 5 MG TABLET PO SCH ×3 (08:14→21:00)
[2020-04-15] MEDS: FENTANYL 2500MCG+NS 250ML 250 ML IV SCH (20:26)
[2020-04-15] MEDS: INSULIN GLARGINE 100 UNITS/ML 10 ML VIAL SQ SCH (21:48)
[2020-04-16] VITALS (58 sets, daily range): BP systolic 94–171; BP diastolic 61–93
[2020-04-16] MEDS: METOPROLOL TARTRATE 1 MG/ML 5ML VIAL IV SCH ×4 (04:00→20:00)
[2020-04-16 04:29] LABS: BASOPHILS % (AUTO) 0.1 % (0.0-5.0); EOSINOPHILS % (AUTO) 0.1 % (0.0-8.0); HEMATOCRIT 33.5 % (42-54); LYMPHOCYTES % (AUTO) 2.6 % (21.0-51.0); MEAN CORPUSCULAR HEMOGLOBIN 29.7 pg (27.0-33.0); MEAN CORPUSCULAR VOLUME 95.7 fL (79-99); MONOCYTES % (AUTO) 3.4 % (3.0-13.0); NEUTROPHILS % (AUTO) 92.1 % (40.0-77.0); NUCLEATED RED BLOOD CELLS 0.1 % (0.0-0.19); PLATELET COUNT (AUTO) 151 K/uL (130-400); WHITE BLOOD COUNT (AUTO) 16.7 K/uL (4.8-10.8)
[2020-04-16] MEDS: INSULIN HUMULIN R 100 UNIT/ML 3ML SQ SCH ×4 (05:47→18:00)
[2020-04-16 05:57] LABS: CREATININE 0.9 mg/dL (0.5-1.5); POTASSIUM 4.7 mmol/L (3.5-5.1)
[2020-04-16] MEDS: ENOXAPARIN SODIUM 40 MG/0.4 ML SYRINGE SQ SCH (09:09)
[2020-04-16] MEDS: PANTOPRAZOLE 40 MG/VIAL IVP SCH (09:09)
[2020-04-16] MEDS: METOCLOPRAMIDE 10 MG/2 ML VIAL IVP SCH (09:09)
[2020-04-16] MEDS: DEXAMETHASONE SOD PHOSPHATE 4 MG/ML 1ML VIAL IVP SCH (09:09)
[2020-04-16] MEDS: MIDODRINE HCL 5 MG TABLET PO SCH ×3 (09:09→21:00)
[2020-04-16] MEDS: ZINC SULFATE 220 CAPSULE PO SCH (09:09)
[2020-04-16] MEDS: ASCORBIC ACID 500 MG TAB PO SCH (09:09)
[2020-04-16] MEDS: MEROPENEM 1 GM VIAL IVP SCH ×2 (13:00→22:15)
[2020-04-16] MEDS: INSULIN GLARGINE 100 UNITS/ML 10 ML VIAL SQ SCH (21:00)
[2020-04-16] MEDS: PROPOFOL 1000 MG/100 ML 100 ML IV PRN (22:16)
[2020-04-16] MEDS: WATER IV SCH (22:17)
[2020-04-16] MEDS: DEXMEDETOMIDINE HCL IV SCH (22:17)
[2020-04-16] MEDS: DEXTROSE 5% IV SCH (22:17)
[2020-04-16] MEDS ORDERED: ACETAMINOPHEN ELIXIR 650 MG/20.3 ML UDCUP ONE (22:44)
[2020-04-17] VITALS (69 sets, daily range): BP systolic 113–173; BP diastolic 62–99
[2020-04-17] MEDS: DEXTROSE 5% IV SCH ×2 (02:38→13:55)
[2020-04-17] MEDS: PROPOFOL 1000 MG/100 ML 100 ML IV PRN ×3 (02:38→15:59)
[2020-04-17] MEDS: WATER IV SCH ×2 (02:38→13:55)
[2020-04-17] MEDS: FENTANYL 2500MCG+NS 250ML 250 ML IV SCH ×2 (02:38→09:18)
[2020-04-17] MEDS: DEXMEDETOMIDINE HCL IV SCH ×2 (02:38→13:55)
[2020-04-17] MEDS: METOPROLOL TARTRATE 1 MG/ML 5ML VIAL IV SCH ×7 (05:20→23:51)
[2020-04-17] MEDS: MEROPENEM 1 GM VIAL IVP SCH ×2 (05:20→11:51)
[2020-04-17] MEDS: INSULIN HUMULIN R 100 UNIT/ML 3ML SQ SCH ×5 (06:00→23:49)
[2020-04-17] MEDS: MIDAZOLAM 100MG-0.9% NS 100ML 100 ML IV SCH (07:45)
[2020-04-17] MEDS: ZINC SULFATE 220 CAPSULE PO SCH (08:20)
[2020-04-17] MEDS: PANTOPRAZOLE 40 MG/VIAL IVP SCH (08:20)
[2020-04-17] MEDS: ENOXAPARIN SODIUM 40 MG/0.4 ML SYRINGE SQ SCH (08:20)
[2020-04-17] MEDS: ASCORBIC ACID 500 MG TAB PO SCH (08:20)
[2020-04-17] MEDS: DEXAMETHASONE SOD PHOSPHATE 4 MG/ML 1ML VIAL IVP SCH (08:20)
[2020-04-17] MEDS: METOCLOPRAMIDE 10 MG/2 ML VIAL IVP SCH (08:20)
[2020-04-17 08:38] LABS: BASOPHILS % (AUTO) 0.3 % (0.0-5.0); EOSINOPHILS % (AUTO) 0.8 % (0.0-8.0); HEMATOCRIT 39.4 % (42-54); MEAN CORPUSCULAR HEMOGLOBIN 30.3 pg (27.0-33.0); MEAN CORPUSCULAR HGB CONC 31.2 g/dL (32.0-36.0); MONOCYTES % (AUTO) 3.6 % (3.0-13.0); NEUTROPHILS % (AUTO) 87.4 % (40.0-77.0); NUCLEATED RED BLOOD CELLS 0.2 % (0.0-0.19); PLATELET COUNT (AUTO) 226 K/uL (130-400); RED BLOOD CELL COUNT(AUTO) 4.06 MIL/uL (4.50-6.20); RED CELL DISTRIBUTION WIDTH 14.3 % (11.0-15.5); WHITE BLOOD COUNT (AUTO) 22.4 K/uL (4.8-10.8)
[2020-04-17] MEDS: MIDODRINE HCL 5 MG TABLET PO SCH ×3 (08:42→19:31)
[2020-04-17 08:55] LABS: CREATININE 0.8 mg/dL (0.5-1.5); MAGNESIUM 1.9 mg/dL (1.80-2.40); PHOSPHORUS 2.4 mg/dL (2.5-4.9); POTASSIUM 4.6 mmol/L (3.5-5.1)
[2020-04-17 09:14] LABS: ABG BASE EXCESS 8.3 mmol/L (-2.0-3.0); ABG HCO3 36.9 mmol/L (21.0-28.0); ABG OXYGEN SATURATION 88.5 % (95.0-99.0); ABG PCO2 70 mmHg (35-48)
[2020-04-17] MEDS ORDERED: SENNOSIDES 8.6 MG TABLET PO PRN (12:45)
[2020-04-17] MEDS: MEROPENEM 500 MG VIAL IVP SCH ×2 (12:45→20:45)
[2020-04-17] MEDS: INSULIN GLARGINE 100 UNITS/ML 10 ML VIAL SQ SCH (21:00)
[2020-04-17] MEDS ORDERED: VANCOMYCIN 1GM+NS 250ML 250 ML IV SCH (23:15)
[2020-04-17] MEDS ORDERED: VANCOMYCIN PROTOCOL PER PHARMACY IV PRN (23:15)
[2020-04-17] MEDS ORDERED: VANCOMYCIN PROTOCOL PER PHARMACY IV SCH (23:45)
[2020-04-17] MEDS: METHYLPREDNISOLONE SOD SUCC 125MG/2ML VIAL IVP SCH (23:52)
[2020-04-18] VITALS (76 sets, daily range): BP systolic 108–166; BP diastolic 58–100
[2020-04-18] MEDS: PROPOFOL 1000 MG/100 ML 100 ML IV PRN (00:48)
[2020-04-18 03:43] LABS: ABG BASE EXCESS 9.6 mmol/L (-2.0-3.0); ABG HCO3 38.1 mmol/L (21.0-28.0); ABG OXYGEN SATURATION 81.2 % (95.0-99.0); ABG PCO2 69 mmHg (35-48)
[2020-04-18] MEDS: METOPROLOL TARTRATE 1 MG/ML 5ML VIAL IV SCH ×2 (04:00→07:58)
[2020-04-18 04:01] LABS: BASOPHILS % (AUTO) 0.1 % (0.0-5.0); EOSINOPHILS % (AUTO) 0.6 % (0.0-8.0); HEMATOCRIT 34.9 % (42-54); LYMPHOCYTES % (AUTO) 4.2 % (21.0-51.0); MEAN CORPUSCULAR HEMOGLOBIN 29.7 pg (27.0-33.0); MEAN CORPUSCULAR HGB CONC 30.4 g/dL (32.0-36.0); MEAN CORPUSCULAR VOLUME 97.8 fL (79-99); MONOCYTES % (AUTO) 1.9 % (3.0-13.0); NEUTROPHILS % (AUTO) 92.4 % (40.0-77.0); NUCLEATED RED BLOOD CELLS 0.2 % (0.0-0.19); PLATELET COUNT (AUTO) 162 K/uL (130-400); RED BLOOD CELL COUNT(AUTO) 3.57 MIL/uL (4.50-6.20); RED CELL DISTRIBUTION WIDTH 14.3 % (11.0-15.5); WHITE BLOOD COUNT (AUTO) 17.7 K/uL (4.8-10.8)
[2020-04-18 04:29] LABS: CREATININE 0.6 mg/dL (0.5-1.5); CRP QUANTITATIVE 36.6 mg/L (0.00-9.0); MAGNESIUM 1.8 mg/dL (1.80-2.40); POTASSIUM 4.5 mmol/L (3.5-5.1)
[2020-04-18] MEDS: MEROPENEM 500 MG VIAL IVP SCH ×3 (04:45→20:45)
[2020-04-18] MEDS: INSULIN HUMULIN R 100 UNIT/ML 3ML SQ SCH ×3 (06:00→18:00)
[2020-04-18] MEDS ORDERED: COMPOUND IV REFRIGERATED 1 EACH IVSOLN MISC PRN (06:45)
[2020-04-18] MEDS: METHYLPREDNISOLONE SOD SUCC 125MG/2ML VIAL IVP SCH (06:53)
[2020-04-18] MEDS ORDERED: SODIUM CHLORIDE 0.9% 250 ML IV ONE (07:48)
[2020-04-18] MEDS: PANTOPRAZOLE 40 MG/VIAL IVP SCH (07:58)
[2020-04-18] MEDS: ENOXAPARIN SODIUM 40 MG/0.4 ML SYRINGE SQ SCH (07:59)
[2020-04-18] MEDS: METOCLOPRAMIDE 10 MG/2 ML VIAL IVP SCH (07:59)
[2020-04-18] MEDS: ZINC SULFATE 220 CAPSULE PO SCH (07:59)
[2020-04-18] MEDS: ASCORBIC ACID 500 MG TAB PO SCH (07:59)
[2020-04-18] MEDS: VANCOMYCIN 1.25 GM in SODIUM CHLORIDE 0.9% 250 ML IV SCH ×2 (08:00→21:00)
[2020-04-18] MEDS ORDERED: LACTATED RINGERS 1000ML 1,000 ML IV ONE (11:30)
[2020-04-18] MEDS ORDERED: MAGNESIUM 2GM PREMIX 50ML 50 ML IV SCH (11:30)
[2020-04-18] MEDS ORDERED: NEUTRA-PHOS PACKET 1 EACH PO SCH (11:45)
[2020-04-18] MEDS ORDERED: METOPROLOL TARTRATE 25 MG TAB ONE ×2 (12:19→12:30)
[2020-04-18] MEDS: INSULIN GLARGINE 100 UNITS/ML 10 ML VIAL SQ SCH (21:00)
[2020-04-18] MEDS: METOPROLOL TARTRATE 25 MG TAB PO SCH (21:00)
[2020-04-18] MEDS: FENTANYL 2500MCG+NS 250ML 250 ML IV SCH (22:02)
[2020-04-19] VITALS (83 sets, daily range): BP systolic 92–172; BP diastolic 51–98
[2020-04-19 04:49] LABS: CRP QUANTITATIVE 114.2 mg/L (0.00-9.0)
[2020-04-19] MEDS: INSULIN HUMULIN R 100 UNIT/ML 3ML SQ SCH ×4 (06:00→18:00)
[2020-04-19] MEDS: MEROPENEM 500 MG VIAL IVP SCH ×3 (06:43→21:14)
[2020-04-19 08:10] LABS: HEMATOCRIT 37.1 % (42-54); MEAN CORPUSCULAR HEMOGLOBIN 30.2 pg (27.0-33.0); MEAN CORPUSCULAR HGB CONC 30.7 g/dL (32.0-36.0); MEAN CORPUSCULAR VOLUME 98.1 fL (79-99); PLATELET COUNT (AUTO) 167 K/uL (130-400); RED BLOOD CELL COUNT(AUTO) 3.78 MIL/uL (4.50-6.20); RED CELL DISTRIBUTION WIDTH 14.6 % (11.0-15.5); WHITE BLOOD COUNT (AUTO) 23.5 K/uL (4.8-10.8)
[2020-04-19 08:18] LABS: ALBUMIN 1.6 g/dL (3.5-5.0); BILIRUBIN,TOTAL 0.4 mg/dL (0.2-1.0); CREATININE 0.6 mg/dL (0.5-1.5); MAGNESIUM 1.9 mg/dL (1.80-2.40); POTASSIUM 4.9 mmol/L (3.5-5.1); TOTAL PROTEIN, SERUM 5.5 g/dL (6.0-8.3)
[2020-04-19] MEDS: METOPROLOL TARTRATE 25 MG TAB PO SCH ×2 (08:28→21:15)
[2020-04-19] MEDS: METOCLOPRAMIDE 10 MG/2 ML VIAL IVP SCH (08:28)
[2020-04-19] MEDS: FLUCONAZOLE 100 MG TAB PO SCH (08:29)
[2020-04-19] MEDS: ZINC SULFATE 220 CAPSULE PO SCH (08:29)
[2020-04-19] MEDS: ENOXAPARIN SODIUM 40 MG/0.4 ML SYRINGE SQ SCH (08:29)
[2020-04-19] MEDS: ASCORBIC ACID 500 MG TAB PO SCH (08:29)
[2020-04-19] MEDS: PANTOPRAZOLE 40 MG/VIAL IVP SCH (08:30)
[2020-04-19 08:48] LABS: ABG BASE EXCESS 12.1 mmol/L (-2.0-3.0); ABG HCO3 39.9 mmol/L (21.0-28.0); ABG OXYGEN SATURATION 85.3 % (95.0-99.0); ABG PCO2 68 mmHg (35-48)
[2020-04-19 08:58] LABS: LYMPHOCYTES % (MANUAL) 6 % (22-44); MAN.DIFF COMMENT-IMPRESSION MANUAL DIFFERENTIAL; MONOCYTES % (MANUAL) 2 % (2-9); PLATELET MORPHOLOGY COMMENT ADEQUATE; SEGMENTED NEUTROPHILS % 92 % (40-70)
[2020-04-19] MEDS: VANCOMYCIN 1.25 GM in SODIUM CHLORIDE 0.9% 250 ML IV SCH ×2 (09:03→21:00)
[2020-04-19] MEDS ORDERED: METOPROLOL TARTRATE 25 MG TAB ONE (12:12)
--- NOTE | 2020-04-19 15:08 | NUR ---
RD FOLLOW UP Pt continues with Tube Feeding Glucerna 1.5. Current Rate 35mls/hr (1260kcal, 69gm protein), Propofol @20mls/hr providing additional 528kcal. Monitored labs: WBC 23.5, BUN 32, AST 39, Alb 1.6. Monitoring Body weight/weight gain. Obesity Class I. Vitamin C, Zinc supplementation in place. Recommend resume tube feeding. RD to continue to monitor. Please notify as nutritional concerns arise. Thank you. Addendum: 04/19/20 at [address] Amended: Links added.
[2020-04-19] MEDS ORDERED: METOPROLOL TARTRATE 25 MG TAB PO SCH (21:00)
[2020-04-19] MEDS: INSULIN GLARGINE 100 UNITS/ML 10 ML VIAL SQ SCH (21:00)
[2020-04-20] VITALS (39 sets, daily range): BP systolic 91–162; BP diastolic 50–96
[2020-04-20] MEDS: PROPOFOL 1000 MG/100 ML 100 ML IV PRN (00:52)
[2020-04-20 03:54] LABS: ABG BASE EXCESS 11.9 mmol/L (-2.0-3.0); ABG HCO3 38.4 mmol/L (21.0-28.0); ABG OXYGEN SATURATION 92.2 % (95.0-99.0); ABG PCO2 56 mmHg (35-48)
[2020-04-20 04:26] LABS: BASOPHILS % (AUTO) 0.1 % (0.0-5.0); EOSINOPHILS % (AUTO) 0.2 % (0.0-8.0); HEMATOCRIT 31.8 % (42-54); LYMPHOCYTES % (AUTO) 2.3 % (21.0-51.0); MEAN CORPUSCULAR HEMOGLOBIN 30.2 pg (27.0-33.0); MEAN CORPUSCULAR HGB CONC 31.4 g/dL (32.0-36.0); MEAN CORPUSCULAR VOLUME 96.1 fL (79-99); MONOCYTES % (AUTO) 1.8 % (3.0-13.0); PLATELET COUNT (AUTO) 133 K/uL (130-400); RED BLOOD CELL COUNT(AUTO) 3.31 MIL/uL (4.50-6.20); RED CELL DISTRIBUTION WIDTH 14.6 % (11.0-15.5); WHITE BLOOD COUNT (AUTO) 17.6 K/uL (4.8-10.8)
[2020-04-20 04:44] LABS: CREATININE 0.6 mg/dL (0.5-1.5); MAGNESIUM 1.9 mg/dL (1.80-2.40); PHOSPHORUS 2.4 mg/dL (2.5-4.9); POTASSIUM 4.1 mmol/L (3.5-5.1)
[2020-04-20 05:20] LABS: CRP QUANTITATIVE 220.1 mg/L (0.00-9.0)
[2020-04-20] MEDS: INSULIN HUMULIN R 100 UNIT/ML 3ML SQ SCH ×4 (06:00→18:00)
[2020-04-20] MEDS: MEROPENEM 500 MG VIAL IVP SCH ×3 (06:18→20:10)
[2020-04-20] MEDS: ASCORBIC ACID 500 MG TAB PO SCH (09:00)
[2020-04-20] MEDS: METOPROLOL TARTRATE 25 MG TAB PO SCH ×3 (09:00→20:12)
[2020-04-20] MEDS: VANCOMYCIN 1.25 GM in SODIUM CHLORIDE 0.9% 250 ML IV SCH ×2 (09:00→20:11)
[2020-04-20] MEDS: ZINC SULFATE 220 CAPSULE PO SCH (09:00)
[2020-04-20] MEDS: FLUCONAZOLE 100 MG TAB PO SCH (09:00)
[2020-04-20] MEDS: PANTOPRAZOLE 40 MG/VIAL IVP SCH (09:00)
[2020-04-20] MEDS: METOCLOPRAMIDE 10 MG/2 ML VIAL IVP SCH (09:00)
[2020-04-20] MEDS: ENOXAPARIN SODIUM 40 MG/0.4 ML SYRINGE SQ SCH (20:13)
[2020-04-20] MEDS: FENTANYL 2500MCG+NS 250ML 250 ML IV SCH (22:24)
[2020-04-20] MEDS: WATER IV SCH (22:25)
[2020-04-20] MEDS: DEXTROSE 5% IV SCH (22:25)
[2020-04-20] MEDS: DEXMEDETOMIDINE HCL IV SCH (22:25)
[2020-04-20] MEDS: INSULIN GLARGINE 100 UNITS/ML 10 ML VIAL SQ SCH (22:30)
[2020-04-21] VITALS (66 sets, daily range): BP systolic 105–180; BP diastolic 65–97
[2020-04-21 03:31] LABS: ABG BASE EXCESS 13.4 mmol/L (-2.0-3.0); ABG HCO3 42.9 mmol/L (21.0-28.0); ABG OXYGEN SATURATION 91.2 % (95.0-99.0); ABG PCO2 77 mmHg (35-48)
[2020-04-21] MEDS: MEROPENEM 500 MG VIAL IVP SCH ×3 (03:53→20:56)
[2020-04-21 05:11] LABS: BASOPHILS % (AUTO) 0.1 % (0.0-5.0); HEMATOCRIT 35.2 % (42-54); LYMPHOCYTES % (AUTO) 1.4 % (21.0-51.0); MEAN CORPUSCULAR HEMOGLOBIN 30.2 pg (27.0-33.0); MEAN CORPUSCULAR HGB CONC 30.7 g/dL (32.0-36.0); MEAN CORPUSCULAR VOLUME 98.3 fL (79-99); NEUTROPHILS % (AUTO) 95.9 % (40.0-77.0); PLATELET COUNT (AUTO) 181 K/uL (130-400); RED BLOOD CELL COUNT(AUTO) 3.58 MIL/uL (4.50-6.20); RED CELL DISTRIBUTION WIDTH 15.2 % (11.0-15.5); WHITE BLOOD COUNT (AUTO) 21.8 K/uL (4.8-10.8)
[2020-04-21 05:23] LABS: CREATININE 0.6 mg/dL (0.5-1.5); MAGNESIUM 1.9 mg/dL (1.80-2.40); PHOSPHORUS 3.1 mg/dL (2.5-4.9); POTASSIUM 4.2 mmol/L (3.5-5.1)
[2020-04-21] MEDS: INSULIN HUMULIN R 100 UNIT/ML 3ML SQ SCH ×4 (05:47→17:37)
[2020-04-21] MEDS: FLUCONAZOLE 100 MG TAB PO SCH (09:00)
[2020-04-21] MEDS: ENOXAPARIN SODIUM 40 MG/0.4 ML SYRINGE SQ SCH ×2 (09:00→20:57)
[2020-04-21] MEDS: ZINC SULFATE 220 CAPSULE PO SCH (09:00)
[2020-04-21] MEDS: DOCUSATE NA 100MG/10ML UDCUP NG SCH (09:00)
[2020-04-21] MEDS: PANTOPRAZOLE 40 MG/VIAL IVP SCH (09:00)
[2020-04-21] MEDS: POLYETHYLENE GLYCOL 3350 17 GM POWD.PACK PO SCH (09:00)
[2020-04-21] MEDS: VANCOMYCIN 1.25 GM in SODIUM CHLORIDE 0.9% 250 ML IV SCH ×2 (09:00→20:57)
[2020-04-21] MEDS: ASCORBIC ACID 500 MG TAB PO SCH (09:00)
[2020-04-21] MEDS: METOPROLOL TARTRATE 25 MG TAB PO SCH ×3 (09:00→20:57)
[2020-04-21] MEDS ORDERED: IOHEXOL-350 75 ML VIAL IV ONE (14:31)
--- NOTE | 2020-04-21 17:52 | NUR ---
CT NURSE WAS READY TO TAKE PT TO CT AFTERNOON BUT CT CALLED AND SAID THEY CANNOT GIVE CONTRAST THROUGH IJ IF IT DOES NOT HAVE CONTRAST INJECTION PORT FOR CT LABELED ON IJ. WILL ATTEMPT FOR AN 20G IN AC AND TRY FOR CT TOMORROW
[2020-04-21] MEDS: INSULIN GLARGINE 100 UNITS/ML 10 ML VIAL SQ SCH (20:59)
[2020-04-22] VITALS (40 sets, daily range): BP systolic 108–171; BP diastolic 54–98
[2020-04-22 03:48] LABS: ABG BASE EXCESS 11.7 mmol/L (-2.0-3.0); ABG HCO3 37.3 mmol/L (21.0-28.0); ABG PCO2 51 mmHg (35-48)
[2020-04-22] MEDS ORDERED: DEXTROSE 50%-WATER 50 ML DISP.SYRIN IV ONE (04:56)
[2020-04-22 05:39] LABS: BASOPHILS % (AUTO) 0.1 % (0.0-5.0); EOSINOPHILS % (AUTO) 0.4 % (0.0-8.0); HEMATOCRIT 35.6 % (42-54); LYMPHOCYTES % (AUTO) 3.3 % (21.0-51.0); MEAN CORPUSCULAR HEMOGLOBIN 29.8 pg (27.0-33.0); MEAN CORPUSCULAR HGB CONC 30.3 g/dL (32.0-36.0); MEAN CORPUSCULAR VOLUME 98.1 fL (79-99); MONOCYTES % (AUTO) 2.8 % (3.0-13.0); PLATELET COUNT (AUTO) 202 K/uL (130-400); RED BLOOD CELL COUNT(AUTO) 3.63 MIL/uL (4.50-6.20); WHITE BLOOD COUNT (AUTO) 20.3 K/uL (4.8-10.8)
[2020-04-22] MEDS: INSULIN HUMULIN R 100 UNIT/ML 3ML SQ SCH ×4 (06:00→18:00)
[2020-04-22 06:08] LABS: CREATININE 0.4 mg/dL (0.5-1.5); MAGNESIUM 1.9 mg/dL (1.80-2.40); PHOSPHORUS 2.3 mg/dL (2.5-4.9); POTASSIUM 3.5 mmol/L (3.5-5.1)
[2020-04-22] MEDS: MEROPENEM 500 MG VIAL IVP SCH ×3 (06:42→19:53)
[2020-04-22] MEDS: DOCUSATE NA 100MG/10ML UDCUP NG SCH (09:26)
[2020-04-22] MEDS: PANTOPRAZOLE 40 MG/VIAL IVP SCH (09:26)
[2020-04-22] MEDS: ASCORBIC ACID 500 MG TAB PO SCH (09:27)
[2020-04-22] MEDS: ZINC SULFATE 220 CAPSULE PO SCH (09:27)
[2020-04-22] MEDS: ENOXAPARIN SODIUM 40 MG/0.4 ML SYRINGE SQ SCH ×2 (09:27→19:54)
[2020-04-22] MEDS: POLYETHYLENE GLYCOL 3350 17 GM POWD.PACK PO SCH (09:27)
[2020-04-22] MEDS: FLUCONAZOLE 100 MG TAB PO SCH (09:28)
[2020-04-22] MEDS: METOPROLOL TARTRATE 25 MG TAB PO SCH ×3 (09:28→19:54)
[2020-04-22] MEDS: VANCOMYCIN 1.25 GM in SODIUM CHLORIDE 0.9% 250 ML IV SCH ×2 (10:20→19:53)
[2020-04-22] MEDS ORDERED: IOHEXOL 350 MG/ML 100ML INFUS..BTL IV ONE (14:29)
[2020-04-22] MEDS: INSULIN GLARGINE 100 UNITS/ML 10 ML VIAL SQ SCH (20:30)
[2020-04-23] VITALS (38 sets, daily range): BP systolic 82–152; BP diastolic 43–81
[2020-04-23 04:14] LABS: ABG BASE EXCESS 13.1 mmol/L (-2.0-3.0); ABG HCO3 40.9 mmol/L (21.0-28.0); ABG OXYGEN SATURATION 91.2 % (95.0-99.0); ABG PCO2 65 mmHg (35-48)
[2020-04-23] MEDS: INSULIN HUMULIN R 100 UNIT/ML 3ML SQ SCH ×4 (06:00→18:00)
[2020-04-23 06:16] LABS: BASOPHILS % (AUTO) 0.1 % (0.0-5.0); EOSINOPHILS % (AUTO) 0.7 % (0.0-8.0); HEMATOCRIT 33.1 % (42-54); LYMPHOCYTES % (AUTO) 2.9 % (21.0-51.0); MEAN CORPUSCULAR HEMOGLOBIN 30.2 pg (27.0-33.0); MEAN CORPUSCULAR HGB CONC 30.2 g/dL (32.0-36.0); MONOCYTES % (AUTO) 3.3 % (3.0-13.0); NEUTROPHILS % (AUTO) 92.5 % (40.0-77.0); PLATELET COUNT (AUTO) 216 K/uL (130-400); RED BLOOD CELL COUNT(AUTO) 3.31 MIL/uL (4.50-6.20); RED CELL DISTRIBUTION WIDTH 15.1 % (11.0-15.5); WHITE BLOOD COUNT (AUTO) 17.7 K/uL (4.8-10.8)
[2020-04-23] MEDS: MEROPENEM 500 MG VIAL IVP SCH ×3 (06:25→20:05)
[2020-04-23 06:36] LABS: CREATININE 0.7 mg/dL (0.5-1.5); MAGNESIUM 2.1 mg/dL (1.80-2.40); PHOSPHORUS 2.2 mg/dL (2.5-4.9)
[2020-04-23] MEDS: DOCUSATE NA 100MG/10ML UDCUP NG SCH (08:54)
[2020-04-23] MEDS: FLUCONAZOLE 100 MG TAB PO SCH (08:54)
[2020-04-23] MEDS: ZINC SULFATE 220 CAPSULE PO SCH (08:55)
[2020-04-23] MEDS: ASCORBIC ACID 500 MG TAB PO SCH (08:55)
[2020-04-23] MEDS: POLYETHYLENE GLYCOL 3350 17 GM POWD.PACK PO SCH (08:55)
[2020-04-23] MEDS: METOPROLOL TARTRATE 25 MG TAB PO SCH ×3 (08:55→20:06)
[2020-04-23] MEDS: ENOXAPARIN SODIUM 40 MG/0.4 ML SYRINGE SQ SCH ×2 (08:55→20:06)
[2020-04-23] MEDS: VANCOMYCIN 1.25 GM in SODIUM CHLORIDE 0.9% 250 ML IV SCH ×2 (09:00→20:05)
[2020-04-23] MEDS: PANTOPRAZOLE 40 MG/VIAL IVP SCH (09:00)
[2020-04-23] MEDS ORDERED: PHARMACY COMMUNICATION MISC SCH (17:30)
[2020-04-23] MEDS ORDERED: SOD PHOSPHATE 45 MMOL/15 ML VI 15 MMOL in SODIUM CHLORIDE 0.9% 250 ML IV PRN (17:30)
--- NOTE | 2020-04-23 18:53 | NUR ---
FAMILY UPDATED FAMILY AND DAUGHTERS OF PATIENTS STATUS AND WILL CONTINUE TO UPDATE FAMILY ONCE NEURO CONSULT IS COMPLETE
[2020-04-23] MEDS: INSULIN GLARGINE 100 UNITS/ML 10 ML VIAL SQ SCH (21:00)
[2020-04-24] VITALS (42 sets, daily range): BP systolic 104–145; BP diastolic 54–85
[2020-04-24 04:28] LABS: BASOPHILS % (AUTO) 0.1 % (0.0-5.0); EOSINOPHILS % (AUTO) 1.4 % (0.0-8.0); HEMATOCRIT 31.3 % (42-54); LYMPHOCYTES % (AUTO) 2.9 % (21.0-51.0); MEAN CORPUSCULAR HEMOGLOBIN 30.2 pg (27.0-33.0); MEAN CORPUSCULAR VOLUME 100.6 fL (79-99); MONOCYTES % (AUTO) 2.2 % (3.0-13.0); NEUTROPHILS % (AUTO) 92.8 % (40.0-77.0); PLATELET COUNT (AUTO) 219 K/uL (130-400); RED BLOOD CELL COUNT(AUTO) 3.11 MIL/uL (4.50-6.20); RED CELL DISTRIBUTION WIDTH 15.2 % (11.0-15.5)
[2020-04-24 04:29] LABS: ABG HCO3 43.9 mmol/L (21.0-28.0); ABG OXYGEN SATURATION 81.5 % (95.0-99.0); ABG PCO2 73 mmHg (35-48)
[2020-04-24 04:48] LABS: ALBUMIN 1.6 g/dL (3.5-5.0); BILIRUBIN,TOTAL 0.3 mg/dL (0.2-1.0); CREATININE 0.6 mg/dL (0.5-1.5); MAGNESIUM 2.1 mg/dL (1.80-2.40); PHOSPHORUS 2.2 mg/dL (2.5-4.9); TOTAL PROTEIN, SERUM 4.9 g/dL (6.0-8.3)
[2020-04-24] MEDS: MEROPENEM 500 MG VIAL IVP SCH ×3 (04:59→20:28)
[2020-04-24] MEDS: INSULIN HUMULIN R 100 UNIT/ML 3ML SQ SCH ×4 (06:00→18:00)
[2020-04-24] MEDS: POLYETHYLENE GLYCOL 3350 17 GM POWD.PACK PO SCH (08:21)
[2020-04-24] MEDS: PANTOPRAZOLE 40 MG/VIAL IVP SCH (08:21)
[2020-04-24] MEDS: ENOXAPARIN SODIUM 40 MG/0.4 ML SYRINGE SQ SCH ×2 (08:21→20:29)
[2020-04-24] MEDS: METOPROLOL TARTRATE 25 MG TAB PO SCH ×3 (08:22→20:28)
[2020-04-24] MEDS: DOCUSATE NA 100MG/10ML UDCUP NG SCH (08:22)
[2020-04-24] MEDS: ZINC SULFATE 220 CAPSULE PO SCH (08:22)
[2020-04-24] MEDS: ASCORBIC ACID 500 MG TAB PO SCH (08:22)
[2020-04-24] MEDS ORDERED: VANCOMYCIN 1GM+NS 250ML 0 ML IV ONE (10:59)
[2020-04-24] MEDS: VANCOMYCIN 1.25 GM in SODIUM CHLORIDE 0.9% 250 ML IV SCH ×2 (13:08→20:28)
[2020-04-24] MEDS: INSULIN GLARGINE 100 UNITS/ML 10 ML VIAL SQ SCH (21:00)
[2020-04-25] VITALS (33 sets, daily range): BP systolic 80–131; BP diastolic 32–75
[2020-04-25] MEDS: MEROPENEM 500 MG VIAL IVP SCH ×3 (04:01→19:55)
[2020-04-25] MEDS: INSULIN HUMULIN R 100 UNIT/ML 3ML SQ SCH ×3 (06:00→18:00)
[2020-04-25 06:13] LABS: BASOPHILS % (AUTO) 0.1 % (0.0-5.0); EOSINOPHILS % (AUTO) 1.3 % (0.0-8.0); HEMATOCRIT 30.8 % (42-54); MEAN CORPUSCULAR HEMOGLOBIN 30.1 pg (27.0-33.0); MEAN CORPUSCULAR HGB CONC 29.2 g/dL (32.0-36.0); MONOCYTES % (AUTO) 2.1 % (3.0-13.0); PLATELET COUNT (AUTO) 279 K/uL (130-400); RED BLOOD CELL COUNT(AUTO) 2.99 MIL/uL (4.50-6.20); RED CELL DISTRIBUTION WIDTH 15.4 % (11.0-15.5); WHITE BLOOD COUNT (AUTO) 14.1 K/uL (4.8-10.8)
[2020-04-25 06:26] LABS: CREATININE 0.7 mg/dL (0.5-1.5); MAGNESIUM 2.2 mg/dL (1.80-2.40); POTASSIUM 4.4 mmol/L (3.5-5.1)
[2020-04-25] MEDS: VANCOMYCIN 1.25 GM in SODIUM CHLORIDE 0.9% 250 ML IV SCH ×2 (09:00→19:55)
[2020-04-25] MEDS: POLYETHYLENE GLYCOL 3350 17 GM POWD.PACK PO SCH (10:02)
[2020-04-25] MEDS: DOCUSATE NA 100MG/10ML UDCUP NG SCH (10:02)
[2020-04-25] MEDS: PANTOPRAZOLE 40 MG/VIAL IVP SCH (10:03)
[2020-04-25] MEDS: METOPROLOL TARTRATE 25 MG TAB PO SCH ×2 (10:04→19:56)
[2020-04-25] MEDS: ZINC SULFATE 220 CAPSULE PO SCH (10:04)
[2020-04-25] MEDS: ENOXAPARIN SODIUM 40 MG/0.4 ML SYRINGE SQ SCH ×2 (10:04→19:55)
[2020-04-25] MEDS: ASCORBIC ACID 500 MG TAB PO SCH (10:07)
--- NOTE | 2020-04-25 19:31 | NUR ---
PT REMIANED STABLE THIS SHIFT. CT SCAN OF BRAIN PERFORMED. MD ADVISED OF REPORT AND RESULTS. SCHEDULED STOOL SOFTENERS WERE DISCONTINUED. PT HAD 2 LARGE LOOSE BMS THIS SHIFT. NOT CHANGES NOTED. MD ROUNDED AND ASSESSED PT AT BEDSIDE.
[2020-04-25] MEDS: INSULIN GLARGINE 100 UNITS/ML 10 ML VIAL SQ SCH (21:00)
[2020-04-25] MEDS ORDERED: DEXTROSE 5%-WATER 1,000 ML IV SCH (22:01)
[2020-04-26] VITALS (30 sets, daily range): BP systolic 84–121; BP diastolic 46–74
[2020-04-26 03:43] LABS: BASOPHILS % (AUTO) 0.2 % (0.0-5.0); EOSINOPHILS % (AUTO) 2.9 % (0.0-8.0); HEMATOCRIT 29.9 % (42-54); LYMPHOCYTES % (AUTO) 3.8 % (21.0-51.0); MEAN CORPUSCULAR HEMOGLOBIN 30.5 pg (27.0-33.0); MEAN CORPUSCULAR HGB CONC 30.1 g/dL (32.0-36.0); MEAN CORPUSCULAR VOLUME 101.4 fL (79-99); MONOCYTES % (AUTO) 1.6 % (3.0-13.0); NEUTROPHILS % (AUTO) 91.1 % (40.0-77.0); PLATELET COUNT (AUTO) 254 K/uL (130-400); RED BLOOD CELL COUNT(AUTO) 2.95 MIL/uL (4.50-6.20); RED CELL DISTRIBUTION WIDTH 15.3 % (11.0-15.5); WHITE BLOOD COUNT (AUTO) 11.7 K/uL (4.8-10.8)
[2020-04-26 04:07] LABS: CREATININE 0.6 mg/dL (0.5-1.5); MAGNESIUM 2.1 mg/dL (1.80-2.40); PHOSPHORUS 2.6 mg/dL (2.5-4.9); POTASSIUM 4.1 mmol/L (3.5-5.1)
[2020-04-26 04:10] LABS: FIBRINOGEN 526 mg/dL (180-350)
[2020-04-26 04:28] LABS: D-DIMER 1697 ng/mL (0-500)
[2020-04-26] MEDS: MEROPENEM 500 MG VIAL IVP SCH ×3 (04:59→20:00)
[2020-04-26] MEDS: INSULIN HUMULIN R 100 UNIT/ML 3ML SQ SCH ×3 (05:00→18:00)
[2020-04-26] MEDS: METOPROLOL TARTRATE 25 MG TAB PO SCH ×3 (09:00→21:00)
[2020-04-26] MEDS: VANCOMYCIN 1.25 GM in SODIUM CHLORIDE 0.9% 250 ML IV SCH (09:00)
[2020-04-26] MEDS: ZINC SULFATE 220 CAPSULE PO SCH (11:53)
[2020-04-26] MEDS: ASCORBIC ACID 500 MG TAB PO SCH (11:53)
[2020-04-26] MEDS: PANTOPRAZOLE 40 MG/VIAL IVP SCH (11:53)
[2020-04-26] MEDS: FLUCONAZOLE 200 MG/NS 100 ML 100 ML IV SCH (11:53)
[2020-04-26] MEDS: ENOXAPARIN SODIUM 40 MG/0.4 ML SYRINGE SQ SCH ×2 (11:55→20:01)
[2020-04-27] VITALS (48 sets, daily range): BP systolic 73–151; BP diastolic 39–83
[2020-04-27] MEDS ORDERED: LACTATED RINGERS 1000ML 1,000 ML IV SCH (04:15)
[2020-04-27] MEDS ORDERED: LACTATED RINGERS 1000ML 1,000 ML IV ONE (04:19)
[2020-04-27] MEDS: MEROPENEM 500 MG VIAL IVP SCH (04:35)
[2020-04-27 05:07] LABS: FIBRINOGEN 508 mg/dL (180-350)
[2020-04-27 05:13] LABS: CRP QUANTITATIVE 38.1 mg/L (0.00-9.0)
[2020-04-27 05:28] LABS: D-DIMER 1754 ng/mL (0-500)
[2020-04-27] MEDS: INSULIN HUMULIN R 100 UNIT/ML 3ML SQ SCH ×3 (06:00→18:00)
[2020-04-27] MEDS ORDERED: NOREPINEPHRINE 4MG/NS 250ML 250 ML IV ONE (08:19)
[2020-04-27] MEDS: VANCOMYCIN 1GM+NS 250ML 250 ML IV SCH ×2 (08:30→21:55)
[2020-04-27] MEDS: ASCORBIC ACID 500 MG TAB PO SCH (08:31)
[2020-04-27] MEDS: METOPROLOL TARTRATE 25 MG TAB PO SCH ×2 (08:31→21:54)
[2020-04-27] MEDS: ZINC SULFATE 220 CAPSULE PO SCH (08:31)
[2020-04-27] MEDS: ENOXAPARIN SODIUM 40 MG/0.4 ML SYRINGE SQ SCH ×2 (08:31→21:54)
[2020-04-27] MEDS: FLUCONAZOLE 200 MG/NS 100 ML 100 ML IV SCH (08:32)
[2020-04-27] MEDS: PANTOPRAZOLE 40 MG/VIAL IVP SCH (08:34)
--- NOTE | 2020-04-27 18:45 | NUR ---
UPDATED FAMILY REGARDING CURRENT STATUS AND CURRENT INFECTION. MADE SEVERAL ATTEMPTS TO CONTACT ID AND LEFT MESSAGE REGARDING CRE IN SPUTUM. WAS STARTED ON LEVO THIS AM FOR HYPOTENSION. MD MADE ROUNDS AND WAS UPDATED AND NOTIFIED OF CHANGES. LEVO OFF AT 1825- WILL CONTINUE TO MONITOR.
--- NOTE | 2020-04-27 19:30 | NUR ---
PLACED CALL TO GEAR REPAIR SUPERVISOR M.D ABOUT SPUTUM CULTURE RESULTS. NO ORDERS RECEIVED. PLACED CALL TO INFECTIOUS DISEASE MD OFFICE AND MAILBOX WAS FULL. ALSO NOTIFIED HOSPITALIST AND NO ORDERS RECEIVED. WILL CONTINUE TO MONITOR.
[2020-04-28] VITALS (154 sets, daily range): BP systolic 46–176; BP diastolic 26–99
[2020-04-28] MEDS ORDERED: SODIUM CHLORIDE 0.9% 1000ML 1,000 ML IV ONE (00:04)
[2020-04-28] MEDS ORDERED: NOREPINEPHRINE 4MG/NS 250ML 250 ML IV ONE ×3 (00:14→21:33)
--- NOTE | 2020-04-28 00:25 | NUR ---
Sat patient's head of bed up high and pt SBP went from 90's to 50's. MD Barnard around gave 500ml Saline bolus, and started Levo. Will get ABG plus to check lytes and pH.
--- NOTE | 2020-04-28 00:50 | NUR ---
ABG showed CO2 of 80, increased vent rate to 36 and tidal volume to 450. O2 improved immediately
[2020-04-28 00:51] LABS: ABG BASE EXCESS 6.5 mmol/L (-2.0-3.0); ABG HCO3 35.3 mmol/L (21.0-28.0); ABG PCO2 80 mmHg (35-48)
[2020-04-28] MEDS: INSULIN HUMULIN R 100 UNIT/ML 3ML SQ SCH ×4 (01:17→18:00)
[2020-04-28 04:13] LABS: ABG BASE EXCESS 13.5 mmol/L (-2.0-3.0); ABG HCO3 40.2 mmol/L (21.0-28.0); ABG OXYGEN SATURATION 87.1 % (95.0-99.0); ABG PCO2 64 mmHg (35-48)
[2020-04-28 05:30] LABS: BASOPHILS % (AUTO) 0.2 % (0.0-5.0); EOSINOPHILS % (AUTO) 1.3 % (0.0-8.0); HEMATOCRIT 29.7 % (42-54); LYMPHOCYTES % (AUTO) 4.3 % (21.0-51.0); MEAN CORPUSCULAR HEMOGLOBIN 30.3 pg (27.0-33.0); MEAN CORPUSCULAR HGB CONC 29.6 g/dL (32.0-36.0); MEAN CORPUSCULAR VOLUME 102.4 fL (79-99); MONOCYTES % (AUTO) 2.4 % (3.0-13.0); NEUTROPHILS % (AUTO) 90.9 % (40.0-77.0); NUCLEATED RED BLOOD CELLS 0.7 % (0.0-0.19); PLATELET COUNT (AUTO) 341 K/uL (130-400); RED CELL DISTRIBUTION WIDTH 15.9 % (11.0-15.5); WHITE BLOOD COUNT (AUTO) 11.1 K/uL (4.8-10.8)
[2020-04-28 05:56] LABS: ALBUMIN 1.7 g/dL (3.5-5.0); BILIRUBIN,TOTAL 0.3 mg/dL (0.2-1.0); CREATININE 0.8 mg/dL (0.5-1.5); CRP QUANTITATIVE 62.5 mg/L (0.00-9.0); MAGNESIUM 2.6 mg/dL (1.80-2.40); PHOSPHORUS 2.8 mg/dL (2.5-4.9); POTASSIUM 4.9 mmol/L (3.5-5.1)
[2020-04-28 06:28] LABS: D-DIMER 1674 ng/mL (0-500)
[2020-04-28 06:35] LABS: FIBRINOGEN 476 mg/dL (180-350)
[2020-04-28] MEDS: PANTOPRAZOLE 40 MG/VIAL IVP SCH (08:44)
[2020-04-28] MEDS: FLUCONAZOLE 200 MG/NS 100 ML 100 ML IV SCH (08:44)
[2020-04-28] MEDS: ZINC SULFATE 220 CAPSULE PO SCH (08:45)
[2020-04-28] MEDS: ASCORBIC ACID 500 MG TAB PO SCH (08:45)
[2020-04-28] MEDS: ENOXAPARIN SODIUM 40 MG/0.4 ML SYRINGE SQ SCH ×2 (08:45→21:00)
[2020-04-28] MEDS: METOPROLOL TARTRATE 25 MG TAB PO SCH ×2 (09:00→21:00)
[2020-04-28] MEDS: VANCOMYCIN 1GM+NS 250ML 250 ML IV SCH ×2 (10:19→21:00)
[2020-04-28] MEDS ORDERED: PHARMACY COMMUNICATION MISC SCH (10:45)
[2020-04-28] MEDS ORDERED: ALBUMIN (HUMAN) 25% 50 ML IV SCH (14:00)
--- NOTE | 2020-04-28 14:00 | NUR ---
NOTED DR PEARSON ORDERED AVICAZ ABX TO TREAT CRE INFX. DURING DR. PARRA ROUND THIS AFTERNOON, PHARMACY NOTIFIED THAT THE MEDICATION IS NOT AVAILABLE. PHARMACY WILL CONTACT MD FOR ALTERNATIVE USE OF TOBRAMYCIN. WILL CONT TO MONITOR.
[2020-04-28] MEDS ORDERED: ALBUMIN (HUMAN) 25% 100 ML IV ONE (14:28)
[2020-04-28] MEDS: BUMETANIDE 0.25 MG/ML 4 ML VIAL IVP SCH (17:03)
[2020-04-28] MEDS: ALBUMIN (HUMAN) 25% 50 ML IV SCH ×2 (17:15→23:15)
[2020-04-28] MEDS: CEFTAZIDIME/AVIBACTAM 2.5 GM in SODIUM CHLORIDE 0.9% 100 ML IV SCH (22:00)
[2020-04-29] VITALS (125 sets, daily range): BP systolic 48–164; BP diastolic 16–88
[2020-04-29] MEDS: BUMETANIDE 0.25 MG/ML 4 ML VIAL IVP SCH ×3 (01:18→17:37)
[2020-04-29 04:23] LABS: BASOPHILS % (AUTO) 0.1 % (0.0-5.0); EOSINOPHILS % (AUTO) 2.9 % (0.0-8.0); HEMATOCRIT 25.8 % (42-54); LYMPHOCYTES % (AUTO) 5.7 % (21.0-51.0); MEAN CORPUSCULAR HEMOGLOBIN 30.3 pg (27.0-33.0); MEAN CORPUSCULAR HGB CONC 29.8 g/dL (32.0-36.0); MEAN CORPUSCULAR VOLUME 101.6 fL (79-99); NEUTROPHILS % (AUTO) 87.4 % (40.0-77.0); PLATELET COUNT (AUTO) 209 K/uL (130-400); RED BLOOD CELL COUNT(AUTO) 2.54 MIL/uL (4.50-6.20); RED CELL DISTRIBUTION WIDTH 16.4 % (11.0-15.5); WHITE BLOOD COUNT (AUTO) 7.7 K/uL (4.8-10.8)
[2020-04-29 04:39] LABS: ALBUMIN 2.1 g/dL (3.5-5.0); BILIRUBIN,TOTAL 0.4 mg/dL (0.2-1.0); CREATININE 0.7 mg/dL (0.5-1.5); CRP QUANTITATIVE 50.9 mg/L (0.00-9.0); POTASSIUM 3.7 mmol/L (3.5-5.1)
[2020-04-29] MEDS: INSULIN HUMULIN R 100 UNIT/ML 3ML SQ SCH ×4 (06:00→18:00)
[2020-04-29] MEDS: ALBUMIN (HUMAN) 25% 50 ML IV SCH ×3 (06:17→17:37)
[2020-04-29] MEDS: CEFTAZIDIME/AVIBACTAM 2.5 GM in SODIUM CHLORIDE 0.9% 100 ML IV SCH ×2 (07:32→14:00)
[2020-04-29] MEDS: ENOXAPARIN SODIUM 40 MG/0.4 ML SYRINGE SQ SCH (09:00)
[2020-04-29] MEDS: METOPROLOL TARTRATE 25 MG TAB PO SCH (09:00)
[2020-04-29] MEDS: ZINC SULFATE 220 CAPSULE PO SCH (09:47)
[2020-04-29] MEDS: PANTOPRAZOLE 40 MG/VIAL IVP SCH (09:47)
[2020-04-29] MEDS: FLUCONAZOLE 200 MG/NS 100 ML 100 ML IV SCH (09:47)
[2020-04-29] MEDS: ASCORBIC ACID 500 MG TAB PO SCH (09:47)
[2020-04-29] MEDS: VANCOMYCIN 1GM+NS 250ML 250 ML IV SCH (09:48)
[2020-04-29] MEDS: NOREPINEPHRINE BITARTRATE 4 MG in DEXTROSE 5%-WATER 250 ML IV SCH (10:15)
[2020-04-29] MEDS ORDERED: SODIUM CHLORIDE 0.9% 1000ML 1,000 ML IV ONE ×3 (10:32→22:12)
[2020-04-29] MEDS ORDERED: CEFTAZIDIME/AVIBACTAM 2.5 GM in SODIUM CHLORIDE 0.9% 100 ML IV SCH (15:45)
--- NOTE | 2020-04-29 18:50 | NUR ---
TIANA-DAUGHTER AND POA- UPDATED BY PHONE AT THIS TIME ABOUT PT CONDITION AND POC. THIS AM PT BECAME HYPOTENSIVE AND TACHYCARDIC (OFF HIS USUAL STATE OF TACHYCARDIA). PT ALSO STARTED TO DESAT. DR DOE ORDERED BOLUSES OF 500 MLS, PT RESPONDED WELL TO TREATMENT. WE SEND OBT AND RESULT CAME POSITIVE. GI CONSULT PENDING. WOUND CARE ALSO GOT ONBOARD AND MADE RECOMMENDATIONS IN REGARDS TO WOUNDS AT [place], FARAZ DTI AT ANKLES AND WOUNDS ON FACE.
[2020-04-29 20:36] LABS: HEMATOCRIT 17.1 % (42-54)
--- NOTE | 2020-04-29 20:45 | NUR ---
PLACED CALL TO HOSPITALIST AND DIRECTOR OF CARDIAC CATH LAB OF FINDINGS IN REGARD TO TACHYCARDIA AND INCREASE NEED FOR VASOPRESSERS. RECHECKED H/H HGB RETURNED 5.1. ORDERS RECEIVED TO TRANSFUSE 2 UNITS.
[2020-04-29 20:54] LABS: ABG BASE EXCESS 8.2 mmol/L (-2.0-3.0); ABG HCO3 34.9 mmol/L (21.0-28.0); ABG PCO2 62 mmHg (35-48)
[2020-04-29] MEDS ORDERED: SODIUM CHLORIDE 0.9% 500ML 500 ML IV ONE (20:58)
[2020-04-29] MEDS ORDERED: NOREPINEPHRINE 4MG/NS 250ML 250 ML IV ONE (22:43)
--- NOTE | 2020-04-29 22:58 | NUR ---
CODE BLUE CODE BLUE ACTIVATED--PT. PULSELESS. STAFF AT BEDSIDE
[2020-04-29] MEDS ORDERED: SODIUM CHLORIDE 0.9% 1000ML 2,000 ML IV ONE (23:02)
[2020-04-29] MEDS ORDERED: SODIUM CHLORIDE 0.9% 250 ML IV ONE (23:04)
[2020-04-29] MEDS ORDERED: EPINEPHRINE 1 MG/ML AMPULE ONE (23:09)
--- NOTE | 2020-04-29 23:19 | NUR ---
RESUSCITATION ENDED. DR. BUCHANAN PRESENT TO PRONOUNCE. STAFF MEMBER ON PHONE TALKING TO FAMILY DURING CODE. THEY ARE AWARE THAT THE PATIENT HAS .
== END 2020-04-29 23:19 | disposition expired | DRG 870 ==
LOC: EDH 12:15 → EDHIP 16:07 → 4BH 19:55 → 2DH 04-04 14:20 → 2AH 04-06 21:41 → 2BH 04-07 11:42 → 2CH 04-12 23:39
PROVIDERS: ADMIT Hospitalist; ATTEND Hospitalist
PROC: 5A09457 Assistance with Respiratory Ventilation, 24-96 Consecutive Hours, Continuous Positive Airway Pressure (ICD-10-PCS; 2020-04-04)
PROC: XW033E5 Introduction of Remdesivir Anti-infective into Peripheral Vein, Percutaneous Approach, New Technology Group 5 (ICD-10-PCS; 2020-04-04)
PROC: XW13325 Transfusion of Convalescent Plasma (Nonautologous) into Peripheral Vein, Percutaneous Approach, New Technology Group 5 (ICD-10-PCS; 2020-04-05)
PROC: 5A1955Z Respiratory Ventilation, Greater than 96 Consecutive Hours (ICD-10-PCS; principal; 2020-04-07)
PROC: 0BH17EZ Insertion of Endotracheal Airway into Trachea, Via Natural or Artificial Opening (ICD-10-PCS; 2020-04-07)
PROC: 30233N1 Transfusion of Nonautologous Red Blood Cells into Peripheral Vein, Percutaneous Approach (ICD-10-PCS; 2020-04-29)
DX: A41.89 Other specified sepsis (principal); U07.1 COVID-19; J12.89 Other viral pneumonia; J96.01 Acute respiratory failure with hypoxia; R65.21 Severe sepsis with septic shock; J15.0 Pneumonia due to Klebsiella pneumoniae; E87.1 Hypo-osmolality and hyponatremia; E87.0 Hyperosmolality and hypernatremia; Z16.24 Resistance to multiple antibiotics; E87.4 Mixed disorder of acid-base balance; G93.1 Anoxic brain damage, not elsewhere classified; I10 Essential (primary) hypertension; E78.00 Pure hypercholesterolemia, unspecified; E86.0 Dehydration; Z68.29 Body mass index [BMI] 29.0-29.9, adult; L89.159 Pressure ulcer of sacral region, unspecified stage; E66.3 Overweight; E87.6 Hypokalemia; D64.9 Anemia, unspecified; D69.6 Thrombocytopenia, unspecified; D72.810 Lymphocytopenia; E11.649 Type 2 diabetes mellitus with hypoglycemia without coma; E11.65 Type 2 diabetes mellitus with hyperglycemia; E66.9 Obesity, unspecified; E78.5 Hyperlipidemia, unspecified; E87.8 Other disorders of electrolyte and fluid balance, not elsewhere classified; Z79.01 Long term (current) use of anticoagulants; Z87.891 Personal history of nicotine dependence; Z83.3 Family history of diabetes mellitus
CPT/HCPCS: 31500; 36415; 36430; 36600; 70450; 71045; 71275; 74176; 80048; 80053; 80076; 80202; 81001; 82010; 82270; 82435; 82728; 82803; 82947; 82948; 83605; 83615; 83735; 84100; 84132; 84145; 84295; 84484; 85014; 85018; 85025; 85378; 85384; 85610; 85730; 86140; 86850; 86900; 86901; 86923; 86927; 87040; 87071; 87077; 87088; 87186; 87205; 87426; 92950; 93005; 93970; 94002; 94003; 94660; 94760; 99291; A4344; A4606; C1751; C9113; G0378; J0171; J0360; J0696; J0714; J1100; J1450; J1650; J1815; J2060; J2185; J2704; J2765; J2920; J2930; J3010; J3370; J3475; J3480; J3490; J7030; J7040; J7050; J7060; J7070; J7120; P9016; P9046; P9047; Q9967; U0003